=== PATIENT | male | born 1955 | race Caucasian/White ===

== ENCOUNTER 2017-03-10 20:28 | Inpatient (IN) ==
[2017-03-10] MEDS ORDERED: Ondansetron 4 MG/2 ML VIAL IVP ONE (21:14)
[2017-03-10] MEDS ORDERED: *HR* Morphine 2 MG/ML SYRINGE IVP ONE (21:14)
[2017-03-10] MEDS ORDERED: 0.9 % Sodium Chloride 500 ML IVC ONE ×2 (21:14→22:17)
--- NOTE | 2017-03-10 21:25 | Emergency Department Note ---
Disposition Clinical Impression: Hypercalcemia, Small cell carcinoma of right lung Disposition: Admitted As Inpatient Condition: Fair Time of Disposition: 22:25 Recheck wound or abnormal lab - General Chief Complaint: ED Recheck/Abnormal Lab/Rx Stated Complaint: High Calcium per cancer center Time Seen by Provider: 03/10/17 20:41 Source: patient Mode of arrival: wheelchair Limitations: no limitations Nursing Notes Reviewed: Yes Vital Signs Reviewed: Yes - History of Present Illness HPI Narrative: 62-year-old male presents to the ED for hypercalcemia. Patient is a cancer patient with diagnosed small cell lung cancer with metastases to the back. He has not gone to his last to chemotherapy appointments as he has had low platelets. He was called today stating that his calcium was too high and to come to the emergency department for possible treatment. Patient states that he hurts all over and this is increase in the past couple days. He also states that he has not had an appetite for the past 3 days. He has not eaten anything for the past few days. Patient is not having any headaches, blurry vision, fevers, chest pain or shortness of breath. Sign of any abdominal pain or change in bowel or bladder movements or any paresthesias going down the arms or legs. - Related Data Home Medications Medication Instructions Recorded Confirmed Aspirin [Aspirin] 81 mg PO DAILY 11/19/16 03/10/17 Isosorbide DInitrate [Isosorbide 30 mg PO DAILY 11/19/16 03/10/17 Dinitrate] Gabapentin [Neurontin] 300 mg PO HS 03/10/17 03/10/17 Previous Rx's Medication Instructions Recorded LORazepam [Ativan] 1 mg PO Q6H PRN #60 tablet 11/12/16 Lidocaine/Prilocaine [Emla] 1 appl TP AD #30 gm 11/12/16 Magic Mouthwash [Magic Mouthwash 10 ml PO QID PRN #240 ml 11/12/16 BLM] Omeprazole [PriLOSEC] 20 mg PO DAILY #90 cap 11/12/16 Ondansetron [Zofran] 8 mg PO Q8HR PRN #90 tablet 11/12/16 Prochlorperazine Maleate 10 mg PO Q6HR PRN #90 tablet 11/12/16 [Compazine] Docusate Sodium [Colace] 100 mg PO BID #60 capsule 12/01/16 Sennosides [Senna] 8.6 mg PO DAILY #60 tablet 12/01/16 Morphine Immed Rel [Morphine 15 mg PO Q2H PRN #90 tab 02/09/17 Sulfate] Morphine Sulfate [Arymo ER] 15 mg PO TID #90 tab.po.er 02/09/17 Allergies Allergy/AdvReac Type Severity Reaction Status Date / Time No Known Allergies Allergy Verified 01/15/17 11:08 Constitutional: Denies: fever, chills, weakness, weight change Eyes: Denies: eye pain, eye discharge, vision change ENT ED: Denies: ear pain, throat pain, dental pain, hearing loss, epistaxis, congestion, dysphagia Cardiovascular: Denies: chest pain, palpitations, dyspnea on exertion, edema, syncope Respiratory: Denies: cough, dyspnea, wheezes, hemoptysis, stridor Gastrointestinal: Reports: nausea. Denies: abdominal pain, vomiting, diarrhea, constipation, hematemesis, melena, hematochezia Genitourinary: Denies: urgency, dysuria, frequency, hematuria Musculoskeletal: Reports: back pain. Denies: neck pain, arthralgia, myalgia Integumentary: Denies: rash, abrasion, lesions Neurological: Denies: headache, weakness, numbness, paresthesias, confusion, abnormal gait, vertigo Psychiatric: Denies: anxiety, depression, suicidal thoughts, homicidal thoughts , auditory hallucinations, visual hallucinations Endocrine: Denies: fatigue Hematological/Lymphatic: Denies: easy bleeding, easy bruising Allergic/Immunologic: Denies: facial swelling, urticaria Past Medical History - Past Medical History Medical history: Reports: cancer, hyperlipidemia, hypertension Psychiatric history: Reports: anxiety - Social History Smoking Status: Unknown if ever smoked Smokeless Tobacco Status: No Alcohol use: Reports: none Drug use: Reports: none Physical Exam - General Limitations: no limitations General appearance: alert, in no apparent distress - Head Head exam: atraumatic, normocephalic, normal inspection - Eye Eye exam: Present: normal appearance, PERRL, EOMI - ENT ENT exam: normal exam, normal oropharynx, mucous membranes moist - Neck Neck exam: Present: normal inspection, full ROM, trachea midline - Chest Chest inspection: Present: normal inspection, symmetric chest wall rise - Respiratory Respiratory exam: Present: normal lung sounds bilaterally - Cardiovascular Cardiovascular exam: Present: regular rate, normal rhythm, normal heart sounds - Abdominal Exam Abdominal exam: Present: soft, Non-Tender, normal bowel sounds. Absent: tenderness, distention, guarding, rebound, rigidity - Back Exam Back exam: Present: normal inspection, full ROM. Absent: tenderness - Skin Skin exam: Present: warm, dry, intact, normal color Course Course Narrative: 62-year-old male presented to the ED for hypercalcemia per lab reports from the cancer center. He had an elevated calcium per lab results for possible chemotherapy but has not been treated. His labs were done at 1300 today. Based on the last being done recently we will just treat him with 500 ml of normal saline. He does have acute kidney injury with an elevated creatinine that is new. He also is hyponatremic. We will admit the patient to the hospitalist service after consulting with oncology. Patient family are okay with this plan. - Consultations Consultation #1: Consulted with hematology/oncology about this patient who recommended we start zoledronic acid 4 mg IV one time as well as calcitonin 4 mg 1. They also asked to be consulted and the patient admitted to medicine. Time: 22:00 Consultation #2: Admitted to the hospitalist service to who agreed to accept the patient to a telemetry bed. History and physical as well as assessment plan were presented to him. Also relayed to him that he needs to call the heme/onc Physician on-call Time: 22:22 Vital Signs Temperature 98.4 F 03/10/17 20:29 Pulse Rate 104 03/10/17 20:29 Respiratory Rate 21 03/10/17 20:29 Blood Pressure 99/67 03/10/17 20:29 O2 Sat by Pulse Oximetry 91 03/10/17 20:29 Temperature 98.1 F 03/11/17 07:17 Pulse Rate 85 03/11/17 08:22 Respiratory Rate 14 03/11/17 07:17 Blood Pressure 103/68 03/11/17 07:17 O2 Sat by Pulse Oximetry 96 03/11/17 07:17 Oxygen Delivery Oxygen Delivery Room Air Recheck wound or abnormal lab - MDM Narrative Medical decision making narrative: 62-year-old male presents to the ED for hypercalcemia secondary to small cell lung cancer with metastases to the back. He had a high calcium reading on labs done today at the cancer center as he has had a low platelet count for the past 2 weeks and unable to do chemotherapy due to that. His labs were done at 1:00 this afternoon so we did not repeat the labs and does use those lab values. He had a calcium of 13.6 and a late liquids of 36. He also was hyponatremic. Due to this we gave him 500 mL bolus of normal saline to help with the hypercalcemia as well as morphine and Zofran for pain and nausea. We talked to the oncologist who recommended zoledronic acid as well as calcitonin for treatment. I called the pharmacy and they did not have zoledronic acid as it was only an outpatient medication but they did have calcitonin Martin that for units per kilogram. I then spoke with the hospitalist who agreed to accept the patient to a telemetry bed. I related to him we are going start the calcitonin and he asked that I give more fluids so I ordered another 500 mL bolus of normal saline. I did express that they did not have zoledronic acid for him to call the oncologist for other recommendations. Patient is now admitted to the hospitalist service for hypercalcemia in a stable condition with normal vital signs. - Medical Records Medical records reviewed: Yes I reviewed the patient's medical records. - Lab Data Lab results reviewed: Yes I reviewed the patient's lab results. Result diagrams: 03/11/17 03:30 03/11/17 01:05 - Radiology Data Radiology results reviewed: Yes I reviewed the patient's radiology results. S.B.A.R. - S.B.A.R. Transition of Care: History physical as well as assessment and plan were relayed to who agreed to accept the patient to a telemetry bed. Situation: Demographics, MOA Background: Presenting Complaint, Relevant PMH, Meds, & Allergies Assessment: Vital Signs, Course and respsone to treatment, Exam Concerns, Patient/Family Expectation, Pertinant Lab Results, Outstanding Labs Recommendation: Barrier(s) to disposition, Recommendation based on pending studies, treatments, or consults S.B.A.R. Report Given to: Dr. Jonatan CallBFaridehAManny Repor Time: 22:26 Attestation Statement - Attestation Attestation: I examined this patient and my medical decision-making was reviewed with the Resident Physician, Dr. Mccurdy. I agree with the documented findings, disposition and treatment plan as described except to the extent set forth below. 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 Pt with chronic bone pain, and c/o dec appetite and ongoing nausea for past 2-3 days. No other complaints. Pt reports that he has not been able to receive his chemo for last 2 sessions due to his low platelets. No bruising or bleeding c/o's. I agree with pt's PE as documented. VSS. Reviewed pt's blood work which was drawn 7 hrs ago. Shows Ca=13.7. Also new renal insuff. Initiated IVF, and D/W hem/onc. They recommended calcitonin and additional medication which pharmacy states we do not carry. They agreed to consult on pt while hosp. Also d/w hospitalist who accepted pt for admission.
[2017-03-10] MEDS ORDERED: Calcitonin-Salmon, Synthetic 400 UNIT/2 ML VIAL IM ONE (22:18)
[2017-03-10] MEDS ORDERED: *HR* Morphine 2 MG/ML SYRINGE IVP PRN (23:36)
[2017-03-10] MEDS ORDERED: Naloxone 0.4 MG/ML INJ IVP PRN (23:36)
[2017-03-10] MEDS ORDERED: Acetaminophen 325 MG TABLET PO PRN (23:36)
[2017-03-10] MEDS ORDERED: Ondansetron 4 MG/2 ML VIAL IVP PRN (23:36)
[2017-03-10] MEDS ORDERED: *HR* LORazepam 1 MG TABLET PO PRN (23:41)
[2017-03-10] MEDS ORDERED: Magic Mouthwash 10 ML UD Cup PO PRN (23:41)
--- NOTE | 2017-03-10 23:42 | Internal Med History&Physical ---
Date of Encounter: 03/11/17 Time of Encounter: 23:30 Assessment and Plan (1) Hypercalcemia Current visit: Yes Status: Acute Severe hypercalcemia - likley secondary to malignancy/SCLC - causing generalized weakness, DEBORAH and constipation Calcitonin given, continue IV fluids, watch for fluid overload PTHrP, PTH intact, ionized calcium, phosphorus, uric acid, LDH - pending Oncology consult Cardiac telemetry, repeat labs in a.m., continue to monitor closely (2) Small cell carcinoma of right lung Current visit: Yes Status: Acute Metastatic Small cell carcinoma right lung with metastases to bone - currently on chemotherapy Overall prognosis is probably poor Oncology consult, palliative care consult (3) COPD (chronic obstructive pulmonary disease) Current visit: No Status: Chronic COPD, stable - not in exacerbation DuoNeb breathing treatment as needed, O2 via nasal cannula Qualifiers: COPD type: unspecified COPD Qualified Code(s): J44.9 - Chronic obstructive pulmonary disease, unspecified (4) Thrombocytopenia Current visit: Yes Status: Chronic Chronic thrombocytopenia 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 Transfuse if platelets < 20,000, transfuse PRBC if hemoglobin < 7 Internal Medicine - H&P: HPI Chief complaint: Hypercalcemia Admitted From: Emergency Dept Plans for Post Hospital Care: Home History of present illness: Mr. Ortiz is a 62 year old male with past medical history hyperlipidemia, hypertension, anxiety and small cell lung cancer undergoing chemotherapy. Patient presents to the ED for hypercalcemia. He had outpatient labs done by oncology and was advised to go to the ED. Examined in the room. Patient is awake and alert. Not in any distress. He is able to provide all history. No family members at bedside. Patient complains of generalized weakness, decreased appetite and constipation over the past few days. Patient also complains of bone pain over multiple areas. He says it is usually worse around his rib cage and thorax. Patient denies chest pain, denies shortness of breath, denies headache or dizziness or cough. Denies abdominal pain or vomiting. No other acute complaints. Workup revealed elevated calcium at 13. Current calcium is 14.6. Patient was advised to go to the ED. Patient has been given calcitonin and is on fluids. Patient was also given IV fluid bolus. Oncology will evaluate patient. No other acute events or findings at this time. Patient is being admitted for hypercalcemia secondary to malignancy. CODE STATUS full code. Past Med Surg Social Fam HX - Past Medical History Medical history: cancer, hyperlipidemia, hypertension Psychiatric history: anxiety - Social History Smoking Status: Unknown if ever smoked Smokeless Tobacco Status: No Alcohol use: none Drug use: none Internal Medicine - H&P: Meds LORazepam [Ativan] 1 mg PO Q6H PRN #60 tablet 11/12/16 [Rx] Lidocaine/Prilocaine [Emla] 1 appl TP AD #30 gm 11/12/16 [Rx] Magic Mouthwash [Magic Mouthwash BLM] 10 ml PO QID PRN #240 ml 11/12/16 [Rx] Omeprazole [PriLOSEC] 20 mg PO DAILY #90 cap 11/12/16 [Rx] Ondansetron [Zofran] 8 mg PO Q8HR PRN #90 tablet 11/12/16 [Rx] Prochlorperazine Maleate [Compazine] 10 mg PO Q6HR PRN #90 tablet 11/12/16 [Rx] Aspirin [Aspirin] 81 mg PO DAILY 11/19/16 [History] RX: Isosorbide DInitrate [Isosorbide Dinitrate] 30 mg PO DAILY 11/19/16 [History ] Docusate Sodium [Colace] 100 mg PO BID #60 capsule 12/01/16 [Rx] Sennosides [Senna] 8.6 mg PO DAILY #60 tablet 12/01/16 [Rx] RX: Morphine Immed Rel [Morphine Sulfate] 15 mg PO Q2H PRN #90 tab 02/09/17 [Rx] RX: Morphine Sulfate [Arymo ER] 15 mg PO TID #90 tab.po.er 02/09/17 [Rx] RX: Gabapentin [Neurontin] 300 mg PO HS 03/10/17 [History] 3 Allergy/AdvReac Type Severity Reaction Status Date / Time No Known Allergies Allergy Verified 01/15/17 11:08 All Systems PM: A 10-system review of systems was performed and is negative for pertinent findings except as documented above in the HPI. - Constitutional Constitutional: fatigue, weight loss, other (Poor appetite), no fever(s), no weakness - EENT Eyes: no blurry vision - Cardiovascular Cardiovascular ROS IM: no chest pain, no diaphoresis, no dyspnea, no dyspnea on exertion, no edema, no lightheadedness, no orthopnea, no syncope - Respiratory Respiratory: cough, no dyspnea, no hemoptysis, no dyspnea on exertion, no wheezing - Gastrointestinal Gastrointestinal: constipation, no abdominal pain, no bloating, no cramping, no diarrhea, no hematemesis, no hematochezia, no loose stools, no nausea, no vomiting - Genitourinary Genitourinary ROS male: no dysuria - Musculoskeletal Musculoskeletal ROS IM: back pain, myalgias, other (Pain lower rib cage and thorax) - Neurological Neurological ROS: no abnormal gait, no confusion, no dizziness, no focal weakness, no loss of vision, no numbness, no tingling - Constitutional Vitals: Temp Pulse Resp BP Pulse Ox 98.4 F 99 14 120/70 92 03/10/17 20:29 03/10/17 23:20 03/10/17 23:20 03/10/17 23:20 03/10/17 23:20 General appearance: Present: cachectic, A&O X 3, pleasant, no acute distress, underweight, answers questions appropriately - Head Head exam: Present: atraumatic - Eye Eye exam: Present: EOMI - ENT ENT exam: Present: mucous membranes dry - Respiratory Respiratory exam: Present: decreased breath sounds (Slightly decreased in both bases). Absent: accessory muscle use, rales, rhonchi, wheezes, tachypnea - Cardiovascular Cardiovascular exam: Present: RRR, +S1, +S2 - GI/Abdominal GI/Abdominal exam: Present: soft. Absent: distended, firm, guarding, tenderness - Extremities Exam Extremities exam: Present: radial pulses palpable and symmetrical. Absent: calf tenderness, cyanotic, pedal edema - Neurological Exam Neurological exam: Present: alert, oriented X3, no focal deficits. Absent: facial droop, speech deficit
[2017-03-11] MEDS ORDERED: 0.9 % Sodium Chloride 1,000 ML ONE (00:07)
--- NOTE | 2017-03-11 00:11 | Oncology Inp Consult Note ---
Date of Encounter: 03/10/17 Time of Encounter: 23:54 Assessment and Plan (1) Hypercalcemia Status: Acute Assessment and plan: - Severe hypercalcemia, in view that when the calcium values are corrected per albumine, it's above 14 mg/dl. He is symptomatic from his hypercalcemia ( generalized weakness, constipation, DEBORAH) and require emergent treatment with IVF for volume expansion, calcitonin and biphosphonates. Recommendations discussed with ED provider. In view of his underlying SCLC, the more likely etiology is hypercalcemia of malignancy. Recommendations: -Calcitonin 4 units/Kg x 1. Repeat serum calcium and ionized calcium in AM, and consider a repeated dose ( 4 units/kg ) if there has not been significant improvement. - Zoledronic acid 4 mg IV ( infusion) x 1. There is associated DEBORAH, but there are case reports documenting good tolerance of zoledronic acid even in the presence of significant DEBORAH. - Continue IVF. I'd consider to add lasix IV only if he develops clinical findings consistent with CHF exacerbation. - Monitor BMP BID. - Check LDH, uric acid, phosphate to r/o TLS. - Check PTH, ionized calcium PTHrP in AM. (2) Small cell carcinoma of right lung Status: Acute Assessment and plan: -Currently on C5D30 of palliative chemotherapy with carbo/Etoposide. Cycle 6 was due on 03/03 but postponed due to acute anemia and thrombocytopenia. - The presence of hypercalcemia and new uptake noticed in bone scan from early january are suggestive of refractory disease. I would suggest to check CT scan of chest, pelvis and abdomen WITHOUT CONTRAST ( in view of DEBORAH), along with bone scan for re staging purposes. - Overall prognosis is poor. - Please request a palliative care consult to help with uncontrolled bone pain. (3) Thrombocytopenia Status: Acute Assessment and plan: - More likely chemo-induced thrombocytopenia and anemia. There is not associated bleeding, will monitor for now. - Monitor CBC daily and transfuse 1 pool of platelets for counts less than 20K - Transfuse 1 PRBC for Hemoglobin levels < 7 g/dl. - Data of Consult Requesting Physician: Maria De Jesus Salmeron MD Primary Care Provider: Evan Rizo MD - Consult Narrative Reason for consult: Management of severe hypercalcemia History of present illness: Mr. Ortiz is a 62 year old male with history of extensive stage small cell lung carcinoma s/p 5 cycles of palliative chemotherapy with carboplatin/ etoposide presenting to the ED due severe hypercalcemia, and associated diffuse severe bone pain, and generalized weakness. Mr. Ortiz is was scheduled to receive cycle 6 of carbo/etoposide on 03/03/17, but chemo was postponed fist due to acute anemia ( requiring 2 units of blood ) and this week due to persistent thrombocytopenia in the 30K range. He is accompanied by a family member at the bedside. He reports that during the last 1-2 weeks he has noticed worsening bone pain, located in multiple areas: both hips, shoulders, rib cage/thorax, back. He rated the pain as 9/10 prior to admission, but decreased to 6/10 after administration of opiates while in the ED. He reports that during the last week has noticed worsening fatigue, generalized weakness, having to ambulate using a cane, but denies any recent falls or focal weakness, or dizziness. He reports that his appetite has decreased, a few days ago had one episode of emesis, but has not recurred since then. he reports good tolerance to PO fluids at home, but with poor PO intake due to poor appetite. He reports spending more time sitting down on the agile coach for the last couple of weeks. He was seen on 02/26/17 at the oncology office here at [place], with plans to complete one more cycle of chemotherapy ( total of 6 ) prior to repeat re staging CT scans. His most recent scans from last January revealed findings consistent with stable or slightly improvement of his disease at the thoracic level, not new solid organ metastatic lesions in the abdomen or pelvis, but evidence of pathologic fracture at the level of L2, along with evidence of bone involvement at the level of left iliac wing, and right ischial tuberosity. His bone scan from the same day revealed evidence of new focal uptake in the right superior acetabulum and the anterior right iliac bone concerning for new skeletal metastatic disease. Palliative radiation had not considered previously since his symptoms were well controlled at that time. The decision to recommend PCI and/or radiation therapy for thoracic consolidation would depend of the results of his next staging CT scans planned after completion of cycle 6 of chemotherapy. Today his calcium was noted to be 13 mg/dl, his values of corrected calcium ( to albumin) were 14.6 mg. He reports symptoms such as constipation, generalized weakness and his labs revealed associated new DEBORAH. He denies shortness of breath, diarrhea, ongoing nausea, headache or focal neurologic deficits. Past Med Surg Social Fam HX - Past Medical History Medical history: cancer, hyperlipidemia, hypertension Psychiatric history: anxiety - Social History Smoking Status: Unknown if ever smoked Smokeless Tobacco Status: No Alcohol use: none Drug use: none Medications and Allergies LORazepam [Ativan] 1 mg PO Q6H PRN #60 tablet 11/12/16 [Rx] Lidocaine/Prilocaine [Emla] 1 appl TP AD #30 gm 11/12/16 [Rx] Magic Mouthwash [Magic Mouthwash BLM] 10 ml PO QID PRN #240 ml 11/12/16 [Rx] Omeprazole [PriLOSEC] 20 mg PO DAILY #90 cap 11/12/16 [Rx] Ondansetron [Zofran] 8 mg PO Q8HR PRN #90 tablet 11/12/16 [Rx] Prochlorperazine Maleate [Compazine] 10 mg PO Q6HR PRN #90 tablet 11/12/16 [Rx] Aspirin [Aspirin] 81 mg PO DAILY 11/19/16 [History] Isosorbide DInitrate [Isosorbide Dinitrate] 30 mg PO DAILY 11/19/16 [History] Docusate Sodium [Colace] 100 mg PO BID #60 capsule 12/01/16 [Rx] Sennosides [Senna] 8.6 mg PO DAILY #60 tablet 12/01/16 [Rx] Morphine Immed Rel [Morphine Sulfate] 15 mg PO Q2H PRN #90 tab 02/09/17 [Rx] Morphine Sulfate [Arymo ER] 15 mg PO TID #90 tab.po.er 02/09/17 [Rx] Gabapentin [Neurontin] 300 mg PO HS 03/10/17 [History] 3 Allergy/AdvReac Type Severity Reaction Status Date / Time No Known Allergies Allergy Verified 01/15/17 11:08 Constitutional: Present: anorexia, fatigue, malaise. Absent: fever(s), frequent falls, headache(s) Eyes: Absent: blurry vision, diplopia, discharge Nose, mouth and throat: Absent: bleeding gums, dizziness Cardiovascular: Absent: chest pain with activity, diaphoresis, edema, palpitations Respiratory: Absent: cough, hemoptysis, pain on inspiration, chest congestion, excessive phlegm production Gastrointestinal: Present: constipation, nausea. Absent: abdominal pain, dyspepsia, dysphagia, hematochezia Genitourinary: urinary frequency Musculoskeletal: Present: abnormal gait, back pain, muscle weakness. Absent: atrophy Integumentary: Absent: bleeding lesions, pruritus Neurological: Absent: behavioral changes, confusion, disequilibrium, dizziness, focal weakness, frequent falls Psychiatric: Absent: auditory hallucinations, behavioral changes, confusion, visual hallucinations Endocrine: Present: change in body appearance Hematologic/Lymphatic: Absent: easy bruising, lymphadenopathy Oncology - Exam - Constitutional Vitals: Temp Pulse Resp BP Pulse Ox 98.4 F 99 16 120/70 92 03/10/17 20:29 03/10/17 23:20 03/10/17 23:43 03/10/17 23:43 03/10/17 23:20 - Head Head exam: Present: normal inspection, normocephalic - Eye Eye exam: Present: EOMI, normal appearance, PERRL - ENT ENT exam: Present: mucous membranes dry, normal oropharynx. Absent: mucous membranes moist - Neck Neck exam: Present: normal inspection. Absent: lymphadenopathy, tenderness - Respiratory Respiratory exam: Present: CTAB. Absent: prolonged expiratory phase, rales, respiratory distress - Cardiovascular Cardiovascular exam: Present: RRR, +S1. Absent: gallop, irregular rhythm, JVD - GI/Abdominal GI/Abdominal exam: Present: normal bowel sounds. Absent: distended, guarding, organomegaly, pulsatile mass - Extremities Exam Extremities exam: Present: full ROM, normal inspection. Absent: pedal edema - Back Exam Back exam: Present: normal inspection, paraspinal tenderness, tenderness, vertebral tenderness - Neurological Exam Neurological exam: Present: alert, CN II-XII intact, oriented X3, reflexes normal Additional comments: There are not focal neurologic deficits in the exam, including normal bilateral finger-nose cerebellar examination. - Psychiatric Psychiatric exam: Present: normal mood. Absent: anxious - Skin Skin exam: Present: normal color. Absent: pallor, petechiae - Additional findings Additional findings: Pain with palpation at different sites, including both shoulders, both hips, and thoracic cage. Consult Discharge Plan - Plan Referrals: Evan Rizo MD [Primary Care Provider] -
[2017-03-11 03:33] LABS: Alanine Aminotransferase 12 Units/L (0-55); Albumin 2.4 g/dL (3.5-5.0); Albumin/Globulin Ratio 0.7 (1.1-2.2); Alkaline Phosphatase 98 Units/L (38-126); Aspartate Amino Transferase 57 Units/L (5-34); BUN/Creatinine Ratio 33 (6-26); Bilirubin,Total 0.3 mg/dL (0.2-1.2); Calcium 12.3 mg/dL (8.6-10.8); Carbon Dioxide 27 mEq/L (19-29); Chloride 92 mEq/L (98-109); Globulin 3.5 g/dL (2.4-3.5); Glucose 113 mg/dL (70-99); Osmolality,Calculated 279 (280-300); Potassium 3.8 mEq/L (3.5-4.5); Sodium 129 mEq/L (136-145); Total Protein 5.9 g/dL (6.0-8.3); eGFR For African Americans > 60 (> 60); eGFR For Non-African Americans 57 (> 60)
[2017-03-11 04:05] LABS: Basophils % 0.2 %; Eosinophils # 0.1 K/mcL (0.0-0.6); Eosinophils % 1.1 %; Hematocrit 25.2 % (37.5-50.1); Hemoglobin 8.4 g/dL (12.9-16.9); Immature Granulocytes % 8.3 % (0-4); Immature Platelets 11.1 % (1.1-6.1); Lymphocytes # 2.2 K/mcL (0.6-4.6); Lymphocytes % 24.6 %; Mean Corpuscular HGB Conc 33.3 g/dL (31.6-35.5); Mean Corpuscular Hemoglobin 30.1 pg (28.0-33.3); Mean Corpuscular Volume 90.3 fL (83.0-100.0); Monocytes # 1.1 K/mcL (0.0-1.3); Monocytes % 12.4 %; Neutrophils # 4.7 K/mcL (1.6-8.9); Nucleated Red Blood Cells 0.8 /100 WBC (0); Red Blood Count 2.79 M/mcL (4.19-5.50); Red Cell Distribution Width 14.8 % (11.5-14.5); Segmented Neutrophils % 53.4 %
[2017-03-11 04:26] LABS: Blood Urea Nitrogen 42 mg/dL (8-26)
[2017-03-11] MEDS: 0.9 % Sodium Chloride 1,000 ML IVC SCH ×4 (04:34→18:51)
[2017-03-11 04:47] LABS: Platelet Count 30 K/mcL (140-400)
[2017-03-11 04:58] LABS: Clarity,Urine Clear (Clear); Color,Urine Yellow (Yellow)
[2017-03-11 04:59] LABS: Bilirubin,Urine Negative (Negative); Blood,Urine Negative (Negative); Glucose,Urine (UA) Normal (Normal); Ketones,Urine Negative (Negative); Leukocyte Esterase,Urine Negative (Negative); Nitrite,Urine Negative (Negative); PH,Urine 5.5 pH Units (5.0-8.0); Protein,Urine Negative (Neg-Trace); Specific Gravity,Urine 1.018 (1.010-1.025); Urobilinogen,Urine Normal (Normal)
[2017-03-11] MEDS ORDERED: Famotidine 20 MG/2 ML VIAL IVP SCH (06:00)
[2017-03-11] MEDS ORDERED: *HR* Heparin 5,000 UNIT/ML VIAL SQ SCH (06:00)
[2017-03-11 06:01] LABS: Phosphorous 2.9 mg/dL (2.3-4.7); Uric Acid 12.1 mg/dL (3.5-7.2)
[2017-03-11] MEDS: Aspirin 81 MG TAB.CHEW PO SCH (08:06)
[2017-03-11] MEDS ORDERED: Sennosides 8.6 MG TABLET PO SCH (09:00)
--- NOTE | 2017-03-11 10:12 | Oncology Inp Progress Note ---
Date of Encounter: 03/11/17 Time of Encounter: 10:10 (1) Hypercalcemia Current Visit: Yes Status: Acute Assessment and plan: - Calcium values are improving, now down to 12.3 mg /dl. - PTH is supressed as expected, consistent with hypercalcemia of malignancy. - Continue ongoing management with IVF. If he develops symptoms of volume overload/CHF, add lasix. - Please repeat another dose of calcitonina today AM: 150 units IM x 1. -If not given yet, please order Zoledronic acid 4 mg x 1 (IV infusion). - Repeat CMP in AM. (2) Small cell carcinoma of right lung Current Visit: Yes Status: Acute Assessment and plan: -Currently on C5D31 of palliative chemotherapy with carbo/Etoposide. Cycle 6 was due on 03/03 but postponed due to acute anemia and thrombocytopenia. - His labs ( hypercalcemia) and clinical findings ( including prior bone scan and CT scan from last january) are suggestive of disease progression. Unfortunately, his options are limited. At this time he is not a candidate for inpatient chemotherapy in view of ongoing thrombocytopenia ( Platelet in the 30K range). I explained him that hypercalcemia and early relapse/refractory disease are poor prognosis indicators. Overall his prognosis is poor, less than 6 months and certainly he would be a candidate for hospice if he decided not pursue further chemotherapy. - I discussed with him the option to attempt to stabilize his electrolyte abnormalities ( hypercalcemia, hyperuricemia) and discharge him home with plans to follow up with medical oncologist Dr. Sandhu to discuss the options of second line therapy for SCLC, however he expressed several times his wishes to go home soon ( if possible today). I explained that alternatively we could focus on quality of life exclusively if he decided against pursuing further chemotherapy. He was leading toward that option but was not completely decided. He expressed interest in meeting with the palliative care team to learn more about the option of hospice, and about the option of going home under hospice care. He will inform his brother about our conversation. - Please request a palliative care consult to address goals of care. - If patient is not interested in hospice, please check CT abdomen /pelvis/chest ( without contrast) and bone scan to assess disease progression. (3) Thrombocytopenia Current Visit: Yes Status: Chronic Assessment and plan: - More likely chemo-induced thrombocytopenia and anemia. - Slight drop to 30 K, but not associated bleeding. - Monitor CBC daily and transfuse 1 pool of platelets for counts less than 20K - Transfuse 1 PRBC for Hemoglobin levels < 7 g/dl. (4) Hyperuricemia Current Visit: Yes Status: Acute Assessment and plan: - Associated with elevated LDH, hypercalcemia, suggestive of aggressive tumor growth, spontaneous TLS ( especially in view of not elevated phosphate levels). - Continue management with IVF, and management of hypercalcemia. - Please order rasburicase 9 mg IV daily x 5 day. Monitor serum uric acid daily. - Add allopurinol 300 mg PO BID Oncology: Subj Interval history: CC: bone pain. Mr. Ortiz reports improvement of his bone pain. Still reporting bone pain at different sites: bilateral shoulders, hips, thoracic cage, but now rating his pain 4 out of 10 ( it was 9/10 prior to admission). He reports poor appetite, and po intake, but denies nausea, vomiting. Reports not BM since 4 days ago. - Constitutional Vitals: Vital Signs Temp Pulse Resp BP Pulse Ox 03/11/17 08:22 85 03/11/17 07:17 98.1 F 84 14 103/68 96 03/11/17 04:29 98.4 F 87 18 96/58 97 03/11/17 00:10 99.8 F H 93 16 96/63 96 03/10/17 23:43 16 120/70 Intake and Output 03/10/17 03/11/17 03/11/17 23:59 07:59 15:59 Intake Total 500 / 1000 0 / 0 120 / 120 Output Total 830 / 830 Balance 500 / 1000 -830 / -830 120 / 120 Intake: IV Fluids 500 / 500 0.9 % Sodium Chloride 500 500 / 500 ML @ 1875 mls/hr IVC . Q16M ONE Rx#:[id number] Oral 0 / 0 120 / 120 Output: Urine 830 / 830 Other: Meal Breakfast Percent of Meal Consumed 10% Weight 47 kg Patient Weight 03/11/17 23:59 Weight 47 kg - Head Head exam: Present: normal inspection, normocephalic - Eye Eye exam: Present: EOMI, normal appearance. Absent: nystagmus, periorbital swelling - ENT ENT exam: Present: normal exam, normal external ear exam, normal oropharynx - Neck Neck exam: Present: normal inspection. Absent: lymphadenopathy, tenderness - Respiratory Respiratory exam: Present: chest wall tenderness, CTAB. Absent: decreased breath sounds, prolonged expiratory phase, rales - Cardiovascular Cardiovascular exam: Present: RRR. Absent: gallop, irregular rhythm - GI/Abdominal GI/Abdominal exam: Present: normal bowel sounds. Absent: diminished bowel sounds, organomegaly, tenderness - Extremities Exam Extremities exam: Present: normal inspection. Absent: pedal edema, tenderness - Back Exam Back exam: Present: normal inspection. Absent: paraspinal tenderness - Neurological Exam Neurological exam: Present: alert, oriented X3. Absent: altered, CN II-XII intact, no focal deficits - Psychiatric Psychiatric exam: Present: normal affect, normal mood - Skin Skin exam: Present: normal color. Absent: pallor, petechiae Oncology: Obj Data - Labs CBC & Chem 7: 03/11/17 03:30 03/11/17 01:05 Labs: Laboratory Results - last 24 hr 03/11/17 03/11/17 03/11/17 01:05 02:05 03:30 WBC 8.8 RBC 2.79 L Hgb 8.4 L D Hct 25.2 L MCV 90.3 MCH 30.1 MCHC 33.3 RDW 14.8 H Plt Count 30 L* Immature Gran % 8.3 H Seg Neutrophils % 53.4 Lymphocytes % 24.6 Monocytes % 12.4 Eosinophils % 1.1 Basophils % 0.2 Neutrophils # 4.7 Lymphocytes # 2.2 Monocytes # 1.1 Eosinophils # 0.1 Basophils # 0.0 Nucleated RBCs/100 WBC 0.8 H Immature Plt Fraction 11.1 H Sodium 129 L Potassium 3.8 Chloride 92 L Carbon Dioxide 27 BUN 42 H Creatinine 1.28 H Est GFR ( Amer) > 60 Est GFR (Non-Af Amer) 57 L BUN/Creatinine Ratio 33 H Glucose 113 H Calculated Osmolality 279 L Uric Acid Calcium 12.3 H Phosphorus Magnesium Total Bilirubin 0.3 AST 57 H ALT 12 Alkaline Phosphatase 98 Lactate Dehydrogenase Serum Total Protein 5.9 L Albumin 2.4 L Globulin 3.5 Albumin/Globulin Ratio 0.7 L Urine Color Yellow Urine Clarity Clear Urine pH 5.5 Ur Specific [place] 1.018 Urine Protein Negative Urine Glucose (UA) Normal Urine Ketones Negative Urine Blood Negative Urine Nitrite Negative Urine Bilirubin Negative Urine Urobilinogen Normal Ur Leukocyte Esterase Negative 03/11/17 03/11/17 04:35 04:35 WBC RBC Hgb Hct MCV MCH MCHC RDW Plt Count Immature Gran % Seg Neutrophils % Lymphocytes % Monocytes % Eosinophils % Basophils % Neutrophils # Lymphocytes # Monocytes # Eosinophils # Basophils # Nucleated RBCs/100 WBC Immature Plt Fraction Sodium Potassium Chloride Carbon Dioxide BUN Creatinine Est GFR ( Amer) Est GFR (Non-Af Amer) BUN/Creatinine Ratio Glucose Calculated Osmolality Uric Acid 12.1 H Calcium Phosphorus 2.9 Magnesium 1.1 L Total Bilirubin AST ALT Alkaline Phosphatase Lactate Dehydrogenase 1641 H Serum Total Protein Albumin Globulin Albumin/Globulin Ratio Urine Color Urine Clarity Urine pH Ur Specific [place] Urine Protein Urine Glucose (UA) Urine Ketones Urine Blood Urine Nitrite Urine Bilirubin Urine Urobilinogen Ur Leukocyte Esterase Consult Discharge Plan - Plan Referrals: Evan Rizo MD [Primary Care Provider] -
[2017-03-11] MEDS ORDERED: Zoledronic Acid (Reclast) 5 MG/100 ML INFUS..BTL IVPB ONE (12:38)
[2017-03-11] MEDS ORDERED: Calcitonin-Salmon, Synthetic 400 UNIT/2 ML VIAL IM ONE (12:40)
[2017-03-11] MEDS ORDERED: Furosemide 20 MG TABLET PO PRN (12:41)
--- NOTE | 2017-03-11 12:46 | Internal Med Progress Note ---
Date of Encounter: 03/11/17 Time of Encounter: 12:44 - Assessment and plan (1) Hypercalcemia of malignancy Current Visit: Yes Status: Acute (2) DEBORAH (acute kidney injury) Current Visit: Yes Status: Acute (3) Small cell carcinoma of right lung Current Visit: Yes Status: Acute (4) Thrombocytopenia Current Visit: Yes Status: Chronic (5) Coordination of complex care Current Visit: Yes Status: Acute (6) COPD (chronic obstructive pulmonary disease) Current Visit: No Status: Chronic Qualifiers: COPD type: unspecified COPD Qualified Code(s): J44.9 - Chronic obstructive pulmonary disease, unspecified - Subjective Interval history: Mr. Ortiz is a 62 year old male with past medical history hyperlipidemia, hypertension, anxiety and small cell lung cancer undergoing chemotherapy. Patient presents to the ED for hypercalcemia. He had outpatient labs done by oncology and was advised to go to the ED. he has just been started on IV hydration and calcitonin was given. Oncology has seen him this morning. We plan to aggressively hydrate the patient and increase IV fluid 250 mL an hour, add Lasix 20 mg daily, additional dose of calcitonin one 150 mg IM 1 and Zoledronic acid 5mg x 1. Repeat CBC CMP daily. Patient has also history of hypertension dyslipidemia and COPD and home medications will be restarted and patient will reassess on daily basis. Oncology feels that patient has poor prognosis due to rapid progression of disease and also due to her from just anemia of malignancy. Palliative care consulted. Overall he seems stable he does not need any oxygen and hemodynamically he is stable. - Constitutional Vitals: Temp Pulse Resp BP Pulse Ox 98.1 F 85 14 103/68 96 03/11/17 07:17 03/11/17 11:17 03/11/17 07:17 03/11/17 07:17 03/11/17 07:17 General appearance: Present: cachectic, A&O X 3, pleasant, no acute distress, underweight, answers questions appropriately - Head Head exam: Present: atraumatic, normocephalic - Eye Eye exam: Present: PERRL, conjuntiva pink, sclera anicteric Pupils: Present: PERRL - Neck Neck exam general surgery: Present: supple, trachea midline. Absent: lymphadenopathy - Respiratory Respiratory exam: Present: CTAB. Absent: accessory muscle use, rales, rhonchi, wheezes - Cardiovascular Cardiovascular exam: Present: RRR, +S1, +S2. Absent: diastolic murmur, gallop, rubs, systolic murmur - GI/Abdominal GI/Abdominal exam: Present: normal bowel sounds, soft, no peritoneal signs. Absent: distended, tenderness - Extremities Exam Extremities exam: Present: warm, radial pulses palpable and symmetrical. Absent : calf tenderness, cyanotic, pedal edema - Neurological Exam Neurological exam: Present: CN II-XII intact, oriented X3, no focal deficits. Absent: pronater drift, facial droop, speech deficit - Skin Skin exam: Present: dry, intact Internal Medicine: Result - Labs CBC & Chem 7: 03/11/17 03:30 03/11/17 01:05 Labs: Short CBC 03/11/17 Range/Units 03:30 WBC 8.8 (4.3-11.1) K/mcL Hgb 8.4 L D (12.9-16.9) g/dL Hct 25.2 L (37.5-50.1) % Plt Count 30 L* (140-400) K/mcL Neutrophils # 4.7 (1.6-8.9) K/mcL BMP 03/11/17 01:05 Sodium 129 L Potassium 3.8 Chloride 92 L Carbon Dioxide 27 BUN 42 H Creatinine 1.28 H Glucose 113 H Calcium 12.3 H Liver Function 03/11/17 Range/Units 01:05 Total Bilirubin 0.3 (0.2-1.2) mg/dL AST 57 H (5-34) Units/L ALT 12 (0-55) Units/L Alkaline Phosphatase 98 (38-126) Units/L Albumin 2.4 L (3.5-5.0) g/dL Urine 03/11/17 Range/Units 02:05 Urine Color Yellow (Yellow) Urine Clarity Clear (Clear) Urine pH 5.5 (5.0-8.0) pH Units Ur Specific [place] 1.018 (1.010-1.025) Urine Protein Negative (Neg-Trace) mg/dL Urine Glucose (UA) Normal (Normal) mg/dL Consult Discharge Plan - Plan Referrals: Evan Rizo MD [Primary Care Provider] -
--- NOTE | 2017-03-11 14:37 | Palliative - Consult Note ---
Date of Encounter: 03/11/17 Time of Encounter: 13:20 - Assessment and Plan (1) Constipation by delayed colonic transit Current Visit: Yes Status: Acute Assessment and plan: Increased Sinemet to 2 tabs twice a day. Continue docusate as already prescribed watch. (2) Counseling regarding goals of care Current Visit: Yes Status: Acute Assessment and plan: After discussion with patient CODE STATUS is changed from full code to DNR CCA, DNI area patient at this time wishes to continue doing chemotherapy but is considering his options. Went over hospice in depth for possibility of the chemotherapy no longer working or causing too many side effects. At this time if further chemotherapy is offered and/or radiation therapy is offered a patient is interested. It does sound like the patient's having fairly significant pain from bony metastases and it might be worthwhile for the patient to get some radiation therapy especially for that. (3) Nausea alone Current Visit: Yes Status: Acute Assessment and plan: Will schedule antiemetic, and see if this helps. (4) Small cell carcinoma of right lung Current Visit: Yes Status: Acute Assessment and plan: Currently getting chemotherapy. (5) Hypercalcemia Current Visit: Yes Status: Acute Assessment and plan: Plan per oncology and hospitalist team including IV hydration him a calcitonin and zoledronic acid. (6) DEBORAH (acute kidney injury) Current Visit: Yes Status: Acute Assessment and plan: Patient beings actively hydrated at this time plan per hospitalist team (7) Bone pain Current Visit: Yes Status: Acute Assessment and plan: Currently the patient's pain is much better, start the patient on Decadron this is in addition to the bisphosphonates which is being given for his hypercalcemia Palliative-CN HPI - Data of Consult Requesting Physician: Maria De Jesus Salmeron MD Primary Care Provider: Evan Rizo MD - Consult Narrative Palliative Care/Comfort Measures: Palliative care History of present illness: Mr. Ortiz is a 62 year old male witha hx of small cell lung cancer first diagnosed in October of this year. Patient has gone through cycles of chemotherapy however the sixth cycle has been held up due to problems with anemia thrombocytopenia now hypercalcemia of D &C. Svelte at this time by the oncology dishes at the cancer center that the patient's calcium [place] is secondary to malignancy, and this plus the low platelets indicates that the therapy may not be working as well for him as was hoped. She reports that at times he has a very sharp pain that is throughout his body which is primarily in his thorax on Dando's abdomen. It seems to be very deep throbbing pain that does get at least a little bit better with pain medications however it was quite bad. They really seem to provoke it went away on its own the medication did seem to help movement deftly made it worse. It was radiating throughout his entire thorax and abdomen. She also has a great deal of trouble with nausea but no vomiting is also very constipated. Causing him do not really want to eat at all. Over the smell of food and the sight of food does not seem to cause him problems it is actually when he starts to eat. Palliative care was consulted regarding the possibility of hospice and information on hospice. See the CC: Maria De Jesus Salmeron MD hypercalceny Past Med Surg Social Fam HX - Past Medical History Medical history: cancer, hyperlipidemia, hypertension Psychiatric history: anxiety - Past Surgical History Surgical History: other - Social History Smoking Status: Unknown if ever smoked Smokeless Tobacco Status: No Alcohol use: none Drug use: none Medications and Allergies LORazepam [Ativan] 1 mg PO Q6H PRN #60 tablet 11/12/16 [Rx] Lidocaine/Prilocaine [Emla] 1 appl TP AD #30 gm 11/12/16 [Rx] Magic Mouthwash [Magic Mouthwash BLM] 10 ml PO QID PRN #240 ml 11/12/16 [Rx] Omeprazole [PriLOSEC] 20 mg PO DAILY #90 cap 11/12/16 [Rx] Ondansetron [Zofran] 8 mg PO Q8HR PRN #90 tablet 11/12/16 [Rx] Prochlorperazine Maleate [Compazine] 10 mg PO Q6HR PRN #90 tablet 11/12/16 [Rx] Aspirin [Aspirin] 81 mg PO DAILY 11/19/16 [History] Isosorbide DInitrate [Isosorbide Dinitrate] 30 mg PO DAILY 11/19/16 [History] Docusate Sodium [Colace] 100 mg PO BID #60 capsule 12/01/16 [Rx] Sennosides [Senna] 8.6 mg PO DAILY #60 tablet 12/01/16 [Rx] Morphine Immed Rel [Morphine Sulfate] 15 mg PO Q2H PRN #90 tab 02/09/17 [Rx] Morphine Sulfate [Arymo ER] 15 mg PO TID #90 tab.po.er 02/09/17 [Rx] Gabapentin [Neurontin] 300 mg PO HS 03/10/17 [History] 3 Allergy/AdvReac Type Severity Reaction Status Date / Time No Known Allergies Allergy Verified 01/15/17 11:08 Palliative Care-Exam - Constitutional Vitals: Temp Pulse Resp BP Pulse Ox 98.1 F 85 14 103/68 96 03/11/17 07:17 03/11/17 11:17 03/11/17 07:17 03/11/17 07:17 03/11/17 07:17 General appearance: Present: no acute distress - Head Head Exam: Present: atraumatic, normal inspection - Eye Eye exam: Present: normal appearance - ENT ENT exam: Present: mucous membranes moist - Neck Neck exam: Present: normal inspection - Respiratory Respiratory exam: Present: CTAB - Cardiovascular Cardiovascular exam: Present: RRR - GI/Abdominal Exam GI/Abdominal exam: Present: normal bowel sounds, soft. Absent: tenderness - Extremities Exam Extremities exam: Present: normal inspection. Absent: pedal edema, tenderness - Neurological Exam Neurological exam: Present: alert, oriented X3 - Psychiatric Psychiatric exam: Present: normal affect, normal mood. Absent: agitated, anxious, homicidal ideation, suicidal ideation - Skin Skin exam: Present: dry, warm Internal Medicine - CN: Reslt - Labs CBC & Chem 7: 03/11/17 03:30 03/11/17 01:05 Labs: Short CBC 03/11/17 Range/Units 03:30 WBC 8.8 (4.3-11.1) K/mcL Hgb 8.4 L D (12.9-16.9) g/dL Hct 25.2 L (37.5-50.1) % Plt Count 30 L* (140-400) K/mcL Neutrophils # 4.7 (1.6-8.9) K/mcL BMP 03/11/17 01:05 Sodium 129 L Potassium 3.8 Chloride 92 L Carbon Dioxide 27 BUN 42 H Creatinine 1.28 H Glucose 113 H Calcium 12.3 H Liver Function 03/11/17 Range/Units 01:05 Total Bilirubin 0.3 (0.2-1.2) mg/dL AST 57 H (5-34) Units/L ALT 12 (0-55) Units/L Alkaline Phosphatase 98 (38-126) Units/L Albumin 2.4 L (3.5-5.0) g/dL Urine 03/11/17 Range/Units 02:05 Urine Color Yellow (Yellow) Urine Clarity Clear (Clear) Urine pH 5.5 (5.0-8.0) pH Units Ur Specific [place] 1.018 (1.010-1.025) Urine Protein Negative (Neg-Trace) mg/dL Urine Glucose (UA) Normal (Normal) mg/dL Consult Discharge Plan - Plan Referrals: Evan Rizo MD [Primary Care Provider] - Palliative Quality Palliative Quality: Screen for Code Status: Yes, Screen for Goals of Care: Yes, Screen for Pain: Yes, If Pain Regimen Started, Initiate Bowel Regimen: Yes, Screen for Nausea/Vomitting: Yes Code Status: 03/10/17 23:36 Resuscitation Status: Active [RES] Routine Comment: Resuscitation Status: [id number]
[2017-03-11] MEDS ORDERED: *HR* Morphine 2 MG/ML SYRINGE IVP PRN (14:50)
[2017-03-11] MEDS: Magnesium Sulfate 2 GM in D5% in Water 100 ML IVPB SCH ×2 (15:40→16:41)
[2017-03-11] MEDS: Ondansetron 4 MG/2 ML VIAL IVP SCH ×2 (17:37→23:48)
[2017-03-11] MEDS: Gabapentin 300 MG CAPSULE PO SCH (20:06)
[2017-03-11] MEDS: Sennosides 8.6 MG TABLET PO SCH (20:06)
[2017-03-12] MEDS: 0.9 % Sodium Chloride 1,000 ML IVC SCH ×3 (00:23→17:49)
[2017-03-12 03:18] LABS: Hemoglobin 8.6 g/dL (12.9-16.9); Nucleated Red Blood Cells 0.3 /100 WBC (0)
[2017-03-12 03:20] LABS: Immature Platelets 5.9 % (1.1-6.1); Mean Corpuscular HGB Conc 33.1 g/dL (31.6-35.5); Mean Corpuscular Hemoglobin 30.1 pg (28.0-33.3); Mean Corpuscular Volume 90.9 fL (83.0-100.0); Mean Platelet Volume 12.1 fL (9.4-12.4); Red Blood Count 2.86 M/mcL (4.19-5.50); Red Cell Distribution Width 14.7 % (11.5-14.5)
[2017-03-12 03:28] LABS: Alanine Aminotransferase 10 Units/L (0-55); Albumin/Globulin Ratio 0.6 (1.1-2.2); Alkaline Phosphatase 85 Units/L (38-126); Aspartate Amino Transferase 47 Units/L (5-34); BUN/Creatinine Ratio 32 (6-26); Bilirubin,Total 0.5 mg/dL (0.2-1.2); Carbon Dioxide 23 mEq/L (19-29); Chloride 98 mEq/L (98-109); Globulin 3.5 g/dL (2.4-3.5); Glucose 115 mg/dL (70-99); Magnesium 1.1 mg/dL (1.6-2.6); Osmolality,Calculated 281 (280-300); Sodium 133 mEq/L (136-145); Total Protein 5.6 g/dL (6.0-8.3); eGFR For African Americans > 60 (> 60); eGFR For Non-African Americans > 60 (> 60)
[2017-03-12 03:29] LABS: Albumin 2.1 g/dL (3.5-5.0); Blood Urea Nitrogen 25 mg/dL (8-26); Calcium 10.3 mg/dL (8.6-10.8); Potassium 3.2 mEq/L (3.5-4.5)
[2017-03-12 04:02] LABS: Platelet Count 33 K/mcL (140-400)
[2017-03-12 04:09] LABS: Lymphocytes # 1.7 K/mcL (0.6-4.6); Monocytes # 0.5 K/mcL (0.0-1.3); Neutrophils # 5.5 K/mcL (1.6-8.9); Platelet Estimate Decreased (Normal)
[2017-03-12] MEDS: Ondansetron 4 MG/2 ML VIAL IVP SCH ×3 (05:54→16:35)
[2017-03-12] MEDS ORDERED: *HR* Morphine Immed Rel 15 MG TABLET PO PRN (07:49)
[2017-03-12] MEDS: Sennosides 8.6 MG TABLET PO SCH ×2 (08:02→21:13)
[2017-03-12] MEDS: Aspirin 81 MG TAB.CHEW PO SCH (08:02)
[2017-03-12] MEDS: *HR* Morphine Sulfate SR (12 HR) 15 MG TABLET.ER PO SCH ×3 (08:04→21:13)
--- NOTE | 2017-03-12 08:16 | Internal Med Progress Note ---
Date of Encounter: 03/12/17 Time of Encounter: 08:12 - Assessment and plan (1) Hypercalcemia of malignancy Current Visit: Yes Status: Acute (2) DEBORAH (acute kidney injury) Current Visit: Yes Status: Acute (3) Small cell carcinoma of right lung Current Visit: Yes Status: Acute (4) Thrombocytopenia Current Visit: Yes Status: Chronic (5) Coordination of complex care Current Visit: Yes Status: Acute (6) COPD (chronic obstructive pulmonary disease) Current Visit: No Status: Chronic Qualifiers: COPD type: unspecified COPD Qualified Code(s): J44.9 - Chronic obstructive pulmonary disease, unspecified (7) Hypomagnesemia Current Visit: Yes Status: Acute - Subjective Interval history: Mr. Ortiz is a 62 year old male with past medical history hyperlipidemia, hypertension, anxiety and small cell lung cancer undergoing chemotherapy. Patient presents to the ED for hypercalcemia. He had outpatient labs done by oncology and was advised to go to the ED. on admission his calcium was 14 and he had 2 rounds of calcitonin and Zometa which has brought his calcium down to 10.3. However his magnesium is only 1.1 while he was given 6 g yesterday and today potassium is down also therefore I will supplement both and recheck tomorrow. On admission he had a a DEBORAH which has resolved. He was aggressively hydrated. Repeat CBC CMP and magnesium daily. patient was complaining of pain and he will be started on his home regimen. Patient has also history of hypertension dyslipidemia and COPD and home medications will be restarted and patient will reassess on daily basis. Oncology feels that patient has poor prognosis due to rapid progression of disease and also due to her from just anemia of malignancy. Palliative care consulted And now patient is DNR/DNI. Overall he seems stable he does not need any oxygen and hemodynamically he is stable. - Constitutional Vitals: Temp Pulse Resp BP Pulse Ox 97.7 F 85 18 120/74 97 03/12/17 07:30 03/12/17 07:30 03/12/17 07:30 03/12/17 07:30 03/12/17 07:30 General appearance: Present: cachectic, A&O X 3, pleasant, no acute distress, underweight, answers questions appropriately - Head Head exam: Present: atraumatic, normocephalic - Eye Eye exam: Present: PERRL, conjuntiva pink, sclera anicteric Pupils: Present: PERRL - Neck Neck exam general surgery: Present: supple, trachea midline. Absent: lymphadenopathy - Respiratory Respiratory exam: Present: CTAB. Absent: accessory muscle use, rales, rhonchi, wheezes - Cardiovascular Cardiovascular exam: Present: RRR, +S1, +S2. Absent: diastolic murmur, gallop, rubs, systolic murmur - GI/Abdominal GI/Abdominal exam: Present: normal bowel sounds, soft, no peritoneal signs. Absent: distended, tenderness - Extremities Exam Extremities exam: Present: warm, radial pulses palpable and symmetrical. Absent : calf tenderness, cyanotic, pedal edema - Neurological Exam Neurological exam: Present: CN II-XII intact, oriented X3, no focal deficits. Absent: pronater drift, facial droop, speech deficit - Skin Skin exam: Present: dry, intact Internal Medicine: Result - Labs CBC & Chem 7: 03/12/17 03:08 03/12/17 03:08 Labs: Short CBC 03/12/17 Range/Units 03:08 WBC 7.8 (4.3-11.1) K/mcL Hgb 8.6 L (12.9-16.9) g/dL Hct 26.0 L (37.5-50.1) % Plt Count 33 L (140-400) K/mcL Neutrophils # 5.5 (1.6-8.9) K/mcL BMP 03/12/17 03:08 Sodium 133 L Potassium 3.2 L Chloride 98 Carbon Dioxide 23 BUN 25 D Creatinine 0.77 Glucose 115 H Calcium 10.3 D Liver Function 03/12/17 Range/Units 03:08 Total Bilirubin 0.5 (0.2-1.2) mg/dL AST 47 H (5-34) Units/L ALT 10 (0-55) Units/L Alkaline Phosphatase 85 (38-126) Units/L Albumin 2.1 L (3.5-5.0) g/dL - VTE Documentation of Mechanical Device: Intermittent pneumatic compression device Consult Discharge Plan - Plan Referrals: Evan Rizo MD [Primary Care Provider] - 03/18/17 1:15 pm Prescriptions: Morphine Sulfate SR (12 HR) [MS Contin] 1 tab PO Q8HR #30 tab Dexamethasone [Decadron] 4 mg PO BID #10 tab Morphine Immed Rel [Morphine Sulfate] 15 mg PO Q2H PRN #90 tab PRN Reason: pain or sob
[2017-03-12] MEDS: Magnesium Sulfate 2 GM in D5% in Water 100 ML IVPB SCH ×3 (10:24→12:59)
--- NOTE | 2017-03-12 10:42 | Palliative Progress Note ---
Date of Encounter: 03/12/17 Time of Encounter: 09:20 - Assessment and plan (1) Constipation by delayed colonic transit Current Visit: Yes Status: Acute Assessment and plan: Continue bowel regimen. (2) Counseling regarding goals of care Current Visit: Yes Status: Acute Assessment and plan: Patient DNR CCA DNI. At this time the patient does wish to continue getting therapy from the cancer center. I have discussed case with the oncology. They may have therapy to offer with regards to the bony metastases. And possibly even with the small cell lung cancer. He is agreeable to trying the [id number] medication to see if that helps. (3) Nausea alone Current Visit: Yes Status: Acute Assessment and plan: Patient refused Zofran yesterday, but still having nausea when he tries to eat or drink. I have asked him to consider trying it to see if this helps. He has agreed. We will continue to watch. (4) Small cell carcinoma of right lung Current Visit: Yes Status: Acute Assessment and plan: Chemotherapy currently on hold, patient is interested in continuing this if it is helpful. Also discussing with radiation oncology as to what they have to offer. (5) Hypercalcemia Current Visit: Yes Status: Acute Assessment and plan: Calcium coming down nicely with therapy and fluids. Plan per hospitalist team (6) DEBORAH (acute kidney injury) Current Visit: Yes Status: Acute Assessment and plan: Resolving with IV fluids (7) Bone pain Current Visit: Yes Status: Acute Assessment and plan: Pain is currently under good control. 2 new current medications. - Time Spent With Patient Total time spent is greater than 50% in coordination of care (as documented) at patient's floor/unit and/or counseling patient: - Constitutional Vitals: Abnormal lab results RBC 2.86 M/mcL (4.19-5.50) L 03/12/17 03:08 Hgb 8.6 g/dL (12.9-16.9) L 03/12/17 03:08 Hct 26.0 % (37.5-50.1) L 03/12/17 03:08 RDW 14.7 % (11.5-14.5) H 03/12/17 03:08 Plt Count 33 K/mcL (140-400) L 03/12/17 03:08 Immature Gran % 8.3 % (0-4) H 03/11/17 03:30 Band Neutrophils % 18.0 % (0-4) H 03/12/17 03:08 Myelocytes % 2.0 % (0) H 03/12/17 03:08 Nucleated RBCs/100 WBC 0.3 /100 WBC (0) H 03/12/17 03:08 Platelet Estimate Decreased (Normal) L 03/12/17 03:08 Sodium 133 mEq/L (136-145) L 03/12/17 03:08 Potassium 3.2 mEq/L (3.5-4.5) L 03/12/17 03:08 BUN/Creatinine Ratio 32 (6-26) H 03/12/17 03:08 Glucose 115 mg/dL (70-99) H 03/12/17 03:08 Uric Acid 12.1 mg/dL (3.5-7.2) H 03/11/17 04:35 Ionized Calcium 1.55 mmol/L (1.15-1.35) H 03/10/17 01:00 Magnesium 1.1 mg/dL (1.6-2.6) L 03/12/17 03:08 AST 47 Units/L (5-34) H 03/12/17 03:08 Lactate Dehydrogenase 1641 Units/L (159-327) H 03/11/17 04:35 Serum Total Protein 5.6 g/dL (6.0-8.3) L 03/12/17 03:08 Albumin 2.1 g/dL (3.5-5.0) L 03/12/17 03:08 Albumin/Globulin Ratio 0.6 (1.1-2.2) L 03/12/17 03:08 PTH Intact 6.1 pg/ml (8.5-72.5) L 03/10/17 01:05 Palliative Quality Palliative Quality: Screen for Code Status: Yes, Screen for Goals of Care: Yes, Screen for Pain: Yes, If Pain Regimen Started, Initiate Bowel Regimen: Yes, Screen for Nausea/Vomitting: Yes Code Status: 03/10/17 23:36 Resuscitation Status: Active [RES] Routine Comment: Resuscitation Status: [id number] - Labs CBC & Chem 7: 03/12/17 03:08 03/12/17 03:08 Labs: Laboratory Results - last 24 hr 03/11/17 03/12/17 03/12/17 04:35 03:08 03:08 WBC 7.8 RBC 2.86 L Hgb 8.6 L Hct 26.0 L MCV 90.9 MCH 30.1 MCHC 33.1 RDW 14.7 H Plt Count 33 L MPV 12.1 Seg Neutrophils % 52.0 Band Neutrophils % 18.0 H Lymphocytes % 22.0 Monocytes % 6.0 Myelocytes % 2.0 H Neutrophils # 5.5 Lymphocytes # 1.7 Monocytes # 0.5 Nucleated RBCs/100 WBC 0.3 H Platelet Estimate Decreased L Immature Plt Fraction 5.9 Sodium 133 L Potassium 3.2 L Chloride 98 Carbon Dioxide 23 BUN 25 D Creatinine 0.77 Est GFR ( Amer) > 60 Est GFR (Non-Af Amer) > 60 BUN/Creatinine Ratio 32 H Glucose 115 H Calculated Osmolality 281 Calcium 10.3 D Magnesium 1.1 L Total Bilirubin 0.5 AST 47 H ALT 10 Alkaline Phosphatase 85 Serum Total Protein 5.6 L Albumin 2.1 L Globulin 3.5 Albumin/Globulin Ratio 0.6 L 25-OH Vitamin D Total 41 Consult Discharge Plan - Plan Referrals: Evan Rizo MD [Primary Care Provider] - 03/18/17 1:15 pm
--- NOTE | 2017-03-12 12:42 | Oncology Inp Progress Note ---
Date of Encounter: 03/12/17 Time of Encounter: 10:00 (1) Hypercalcemia Current Visit: Yes Status: Acute Assessment and plan: - Clinical picture consistent with hypercalcemia of malignancy. - Serum calcium values have normalized after receiving calcitonina, and 5 mg of zoledronic acid. No need to repeat either one during current admission. - Upon discharge please arrange for weekly labs, including BMP, Mg, Phosphorus. (2) Small cell carcinoma of right lung Current Visit: Yes Status: Acute Assessment and plan: -Currently on C5D32 of palliative chemotherapy with carbo/Etoposide. Cycle 6 was due on 03/03 but postponed due to acute anemia and thrombocytopenia. - I appreciate palliative care input, and outcome of discussion of goals of care. Code status changed to DNR-Comfort care-Arrest DNI. He expressed his decision to pursue further chemotherapy. Upon discharge, please arrange follow up with Dr. Sandhu to discuss options of systemic therapy. - He may benefit from palliative radiation in view of his multiple painful bone lesions, but at this time there is not indication for inpatient care in view of significant improvement with current pain management. Please arrange for an office appointment with radiation oncology to discuss options of palliative radiation. (3) Thrombocytopenia Current Visit: Yes Status: Chronic Assessment and plan: - Overall stable in the 30s, slightly trending up. - No indication for platelet transfusion at this time, unless counts drop below 30K or if the develops active bleeding ( with goal of 50K). - Transfuse 1 PRBC for Hemoglobin levels < 7 g/dl. (4) Hyperuricemia Current Visit: Yes Status: Acute Assessment and plan: - Associated to malignancy. - Please order single dose of rasburicase 3 mg x 1 and start allopurinol 300 mg PO daily. - Repeat Uric acid levels to confirm normalization after therapy. (5) Magnesium disorder Current Visit: Yes Status: Acute Assessment and plan: - I agree with IV replacement of Magnesium. - Monitor Mg levels upon discharge in a weekly basis. - PO magnesium supplementation. (6) Hypokalemia Current Visit: Yes Status: Acute Assessment and plan: - I agree with ongoing replacement. May need to be discharge on PO potassium supplementation. Oncology: Subj Interval history: Reports feeling better. Calcium levels trending down. Ambulating inside the room , no complaints. Tolerating meals. Denies bleeding events. Reports persistent pain, but definitely improved, now 09/04. No radiated. Present in same areas: both shoulders, hips, rib cage, not predominant painful area. - Constitutional Vitals: Vital Signs Temp Pulse Resp BP Pulse Ox 03/12/17 11:04 97.5 F L 77 18 106/69 99 03/12/17 07:30 97.7 F 85 18 120/74 97 03/12/17 03:43 98.2 F 87 20 105/72 97 03/11/17 23:49 98.4 F 94 16 124/71 99 03/11/17 20:13 90 03/11/17 19:26 98.3 F 89 21 117/64 96 03/11/17 15:55 98.2 F 87 20 109/61 96 03/11/17 15:00 91 Intake and Output 03/11/17 03/12/17 03/12/17 23:59 07:59 15:59 Intake Total 808 / 808 1999 / 1999 902 / 902 Output Total 325 / 325 900 / 900 200 / 200 Balance 483 / 483 1100 / 1100 702 / 702 Intake: IV Fluids 808 / 808 1999 / 1999 432 / 432 0.9 % Sodium Chloride 1, 600 / 600 1999 / 1999 332 / 332 000 ML @ 150 mls/hr IVC . Q6H40M [facility] Rx#:[id number] Magnesium Sulfate 2 GM In 208 / 208 100 / 100 Dextrose 5% 100 ML @ 100 mls/hr IVPB ONCE [facility] Rx# :[id number] Oral 470 / 470 Output: Urine 325 / 325 900 / 900 200 / 200 Other: Meal Breakfast Percent of Meal Consumed 0% Weight 48.4 kg Patient Weight 03/12/17 23:59 Weight 48.4 kg - Head Head exam: Present: normal inspection - Eye Eye exam: Present: EOMI - ENT ENT exam: Present: mucous membranes moist - Respiratory Respiratory exam: Present: CTAB - Cardiovascular Cardiovascular exam: Absent: gallop, JVD - GI/Abdominal GI/Abdominal exam: Absent: normal bowel sounds, organomegaly - Extremities Exam Extremities exam: Present: normal inspection - Neurological Exam Neurological exam: Present: alert, altered, CN II-XII intact - Psychiatric Psychiatric exam: Present: normal affect, normal mood - Skin Skin exam: Present: normal color. Absent: pallor Oncology: Obj Data - Labs CBC & Chem 7: 03/12/17 03:08 03/12/17 03:08 Labs: Laboratory Results - last 24 hr 03/11/17 03/12/17 03/12/17 04:35 03:08 03:08 WBC 7.8 RBC 2.86 L Hgb 8.6 L Hct 26.0 L MCV 90.9 MCH 30.1 MCHC 33.1 RDW 14.7 H Plt Count 33 L MPV 12.1 Seg Neutrophils % 52.0 Band Neutrophils % 18.0 H Lymphocytes % 22.0 Monocytes % 6.0 Myelocytes % 2.0 H Neutrophils # 5.5 Lymphocytes # 1.7 Monocytes # 0.5 Nucleated RBCs/100 WBC 0.3 H Platelet Estimate Decreased L Immature Plt Fraction 5.9 Sodium 133 L Potassium 3.2 L Chloride 98 Carbon Dioxide 23 BUN 25 D Creatinine 0.77 Est GFR ( Amer) > 60 Est GFR (Non-Af Amer) > 60 BUN/Creatinine Ratio 32 H Glucose 115 H Calculated Osmolality 281 Calcium 10.3 D Magnesium 1.1 L Total Bilirubin 0.5 AST 47 H ALT 10 Alkaline Phosphatase 85 Serum Total Protein 5.6 L Albumin 2.1 L Globulin 3.5 Albumin/Globulin Ratio 0.6 L 25-OH Vitamin D Total 41 Consult Discharge Plan - Plan Referrals: Evan Rizo MD [Primary Care Provider] - 03/18/17 1:15 pm
--- NOTE | 2017-03-12 15:14 | Event Note ---
Date of Encounter: 03/12/17 Time of Encounter: 15:13 Have confirmed with oars report the patient is due for refills this week. Patient's family has contacted the cancer Center and should be able to get a refill today they were able to get the ir morphine so i provided the er morphine and the decadron this weas filled today for d/c prob tomorrow. I have communicated this with Abraham Zheng cnp for the cancer center. He has assured me of follow up on the prescription next week if needed.
[2017-03-12] MEDS: Gabapentin 300 MG CAPSULE PO SCH (21:13)
[2017-03-13] MEDS: Ondansetron 4 MG/2 ML VIAL IVP SCH ×5 (00:32→23:56)
[2017-03-13 04:30] LABS: Hematocrit 23.7 % (37.5-50.1); Mean Corpuscular HGB Conc 33.8 g/dL (31.6-35.5)
[2017-03-13 04:32] LABS: Mean Corpuscular Hemoglobin 30.4 pg (28.0-33.3); Mean Corpuscular Volume 90.1 fL (83.0-100.0); Red Blood Count 2.63 M/mcL (4.19-5.50); Red Cell Distribution Width 14.6 % (11.5-14.5)
[2017-03-13 04:49] LABS: Alanine Aminotransferase 10 Units/L (0-55); Albumin/Globulin Ratio 0.6 (1.1-2.2); Alkaline Phosphatase 83 Units/L (38-126); Aspartate Amino Transferase 39 Units/L (5-34); BUN/Creatinine Ratio 26 (6-26); Bilirubin,Total 0.4 mg/dL (0.2-1.2); Blood Urea Nitrogen 18 mg/dL (8-26); Calcium 8.7 mg/dL (8.6-10.8); Carbon Dioxide 24 mEq/L (19-29); Chloride 100 mEq/L (98-109); Globulin 3.3 g/dL (2.4-3.5); Glucose 115 mg/dL (70-99); Magnesium 1.1 mg/dL (1.6-2.6); Osmolality,Calculated 277 (280-300); Potassium 3.4 mEq/L (3.5-4.5); Sodium 132 mEq/L (136-145); Total Protein 5.3 g/dL (6.0-8.3); eGFR For African Americans > 60 (> 60); eGFR For Non-African Americans > 60 (> 60)
[2017-03-13 05:20] LABS: Platelet Count 36 K/mcL (140-400)
[2017-03-13 05:24] LABS: Basophils # 0.2 K/mcL (0.0-0.2); Lymphocytes # 1.9 K/mcL (0.6-4.6); Monocytes # 0.9 K/mcL (0.0-1.3); Neutrophils # 4.4 K/mcL (1.6-8.9); Platelet Estimate Marked Decrease (Normal); Reactive Lymphocytes Present (Not Present)
[2017-03-13 05:25] LABS: Anisocytosis 1+ (Not Present)
[2017-03-13] MEDS: 0.9 % Sodium Chloride 1,000 ML IVC SCH ×2 (06:37→16:26)
[2017-03-13] MEDS: Sennosides 8.6 MG TABLET PO SCH ×2 (08:57→21:13)
[2017-03-13] MEDS: Aspirin 81 MG TAB.CHEW PO SCH (08:57)
[2017-03-13] MEDS: *HR* Morphine Sulfate SR (12 HR) 15 MG TABLET.ER PO SCH ×3 (08:57→21:13)
--- NOTE | 2017-03-13 11:14 | Oncology Inp Progress Note ---
Date of Encounter: 03/13/17 Time of Encounter: 11:12 (1) Hypercalcemia of malignancy Current Visit: Yes Status: Acute Assessment and plan: Resolved with fluids, calcitonin and zometa. Calcium level normal today. Will f/u as outpatient. (2) Small cell carcinoma of right lung Current Visit: Yes Status: Acute Assessment and plan: Presentation concerning for progression. In addition, persistent thrombocytopenia precludes further chemotherapy at this time. Will ultimately defer to Dr. Sandhu, but likely may benefit to change to Ipi/Nivo. Consider repeat imaging as outpatient. (3) Thrombocytopenia Current Visit: Yes Status: Chronic Assessment and plan: Stable. Will f/u as outpatient. (4) DEBORAH (acute kidney injury) Current Visit: Yes Status: Acute Assessment and plan: Secondary to hypercalcemia, resolved. No need for allopurinol or rasburicase at current. May d/c to home from my perspective. Will arrange for f/u this week with Dr. Sandhu. Oncology: Subj Interval history: Feeling well and breathing comfortably. No new aches or pains. No fever or chills. Anxious to go home. - Constitutional Vitals: Vital Signs Temp Pulse Resp BP Pulse Ox 03/13/17 11:06 97.8 F 89 16 126/74 95 03/13/17 07:48 98.1 F 88 18 110/71 95 03/13/17 03:37 98.9 F 85 16 105/67 93 03/12/17 19:16 98.9 F 91 16 115/63 94 03/12/17 16:31 98.3 F 79 18 94 03/12/17 16:14 78 90/55 95 Intake and Output 03/13/17 03/13/17 03/13/17 00:59 08:59 16:59 Intake Total 668 / 668 1250 / 1250 Output Total 0 / 0 650 / 650 0 / 0 Balance 668 / 668 600 / 600 0 / 0 Intake: IV Fluids 668 / 668 1000 / 1000 0.9 % Sodium Chloride 1, 668 / 668 1000 / 1000 000 ML @ 80 mls/hr IVC . [id number] FORMERLY [facility], 1928–1983 Rx#: [id number] Oral 0 / 0 250 / 250 Output: Urine 0 / 0 650 / 650 0 / 0 - Head Head exam: Present: atraumatic, normal inspection, normocephalic - Eye Eye exam: Present: conjuntiva pink, sclera anicteric - ENT ENT exam: Present: mucous membranes moist, normal exam - Neck Neck exam: Present: normal inspection, tenderness - Respiratory Respiratory exam: Present: decreased breath sounds, CTAB - Cardiovascular Cardiovascular exam: Present: RRR - GI/Abdominal GI/Abdominal exam: Present: soft - Extremities Exam Extremities exam: Present: normal capillary refill, normal inspection - Neurological Exam Neurological exam: Present: alert, CN II-XII intact Oncology: Obj Data - Labs CBC & Chem 7: 03/13/17 04:16 03/13/17 04:16 Labs: Laboratory Results - last 24 hr 03/13/17 03/13/17 04:16 04:16 WBC 7.4 RBC 2.63 L Hgb 8.0 L Hct 23.7 L MCV 90.1 MCH 30.4 MCHC 33.8 RDW 14.6 H Plt Count 36 L MPV 12.0 Seg Neutrophils % 56.0 Band Neutrophils % 4.0 Lymphocytes % 26.0 Monocytes % 12.0 Basophils % 2.0 Neutrophils # 4.4 Lymphocytes # 1.9 Monocytes # 0.9 Basophils # 0.2 Reactive Lymphocytes Present A Platelet Estimate Marked Decrease L Immature Plt Fraction 6.0 Anisocytosis 1+ A Sodium 132 L Potassium 3.4 L Chloride 100 Carbon Dioxide 24 BUN 18 Creatinine 0.70 L Est GFR ( Amer) > 60 Est GFR (Non-Af Amer) > 60 BUN/Creatinine Ratio 26 Glucose 115 H Calculated Osmolality 277 L Calcium 8.7 D Magnesium 1.1 L Total Bilirubin 0.4 AST 39 H ALT 10 Alkaline Phosphatase 83 Serum Total Protein 5.3 L Albumin 2.0 L Globulin 3.3 Albumin/Globulin Ratio 0.6 L Consult Discharge Plan - Plan Referrals: Evan Rizo MD [Primary Care Provider] - 03/18/17 1:15 pm Prescriptions: Dexamethasone [Decadron] 4 mg PO BID #10 tab Morphine Immed Rel [Morphine Sulfate] 15 mg PO Q2H PRN #90 tab PRN Reason: pain or sob Morphine Sulfate SR (12 HR) [MS Contin] 1 tab PO Q8HR #30 tab
[2017-03-13] MEDS ORDERED: Potassium Chloride 40 MEQ, Lidocaine 1% 2 ML in D5% in Water 500 ML IVPB ONE (11:58)
--- NOTE | 2017-03-13 12:00 | Internal Med Progress Note ---
Date of Encounter: 03/13/17 Time of Encounter: 11:59 - Assessment and plan (1) Hypercalcemia of malignancy Current Visit: Yes Status: Acute (2) DEBORAH (acute kidney injury) Current Visit: Yes Status: Acute (3) Small cell carcinoma of right lung Current Visit: Yes Status: Acute (4) Thrombocytopenia Current Visit: Yes Status: Chronic (5) Coordination of complex care Current Visit: Yes Status: Acute (6) COPD (chronic obstructive pulmonary disease) Current Visit: No Status: Chronic Qualifiers: COPD type: unspecified COPD Qualified Code(s): J44.9 - Chronic obstructive pulmonary disease, unspecified (7) Hypomagnesemia Current Visit: Yes Status: Acute - Subjective Interval history: Mr. Ortiz is a 62 year old male with past medical history hyperlipidemia, hypertension, anxiety and small cell lung cancer undergoing chemotherapy. Patient presents to the ED for hypercalcemia. He had outpatient labs done by oncology and was advised to go to the ED. on admission his calcium was 14 and he had 2 rounds of calcitonin and Zometa which has brought his calcium down to 10.3. However his magnesium is only 1.1 while he was given 6 g yesterday and today potassium is down also therefore I will supplement both and recheck tomorrow. Amiloride 5mg daily and magnesium oxide 800 twice a day will be added to On admission he had a a DEBORAH which has resolved. He was aggressively hydrated. Repeat CBC CMP and magnesium daily. patient was complaining of pain and he will be started on his home regimen. Patient has also history of hypertension dyslipidemia and COPD and home medications will be restarted and patient will reassess on daily basis. Oncology feels that patient has poor prognosis due to rapid progression of disease and also due to her from just anemia of malignancy. From oncology perspective the patient can be discharged. Palliative care consulted And now patient is DNR/DNI. Overall he seems stable he does not need any oxygen and hemodynamically he is stable. - Constitutional Vitals: Temp Pulse Resp BP Pulse Ox 97.8 F 89 16 126/74 95 03/13/17 11:06 03/13/17 11:06 03/13/17 11:06 03/13/17 11:06 03/13/17 11:06 General appearance: Present: cachectic, A&O X 3, pleasant, no acute distress, underweight, answers questions appropriately - Head Head exam: Present: atraumatic, normocephalic - Eye Eye exam: Present: PERRL, conjuntiva pink, sclera anicteric Pupils: Present: PERRL - Neck Neck exam general surgery: Present: supple, trachea midline. Absent: lymphadenopathy - Respiratory Respiratory exam: Present: CTAB. Absent: accessory muscle use, rales, rhonchi, wheezes - Cardiovascular Cardiovascular exam: Present: RRR, +S1, +S2. Absent: diastolic murmur, gallop, rubs, systolic murmur - GI/Abdominal GI/Abdominal exam: Present: normal bowel sounds, soft, no peritoneal signs. Absent: distended, tenderness - Extremities Exam Extremities exam: Present: warm, radial pulses palpable and symmetrical. Absent : calf tenderness, cyanotic, pedal edema - Neurological Exam Neurological exam: Present: CN II-XII intact, oriented X3, no focal deficits. Absent: pronater drift, facial droop, speech deficit - Skin Skin exam: Present: dry, intact Internal Medicine: Result - Labs CBC & Chem 7: 03/13/17 04:16 03/13/17 04:16 Labs: Short CBC 03/13/17 Range/Units 04:16 WBC 7.4 (4.3-11.1) K/mcL Hgb 8.0 L (12.9-16.9) g/dL Hct 23.7 L (37.5-50.1) % Plt Count 36 L (140-400) K/mcL Neutrophils # 4.4 (1.6-8.9) K/mcL BMP 03/13/17 04:16 Sodium 132 L Potassium 3.4 L Chloride 100 Carbon Dioxide 24 BUN 18 Creatinine 0.70 L Glucose 115 H Calcium 8.7 D Liver Function 03/13/17 Range/Units 04:16 Total Bilirubin 0.4 (0.2-1.2) mg/dL AST 39 H (5-34) Units/L ALT 10 (0-55) Units/L Alkaline Phosphatase 83 (38-126) Units/L Albumin 2.0 L (3.5-5.0) g/dL - VTE Documentation of Mechanical Device: Intermittent pneumatic compression device Consult Discharge Plan - Plan Referrals: Evan Rizo MD [Primary Care Provider] - 03/18/17 1:15 pm Prescriptions: Morphine Sulfate SR (12 HR) [MS Contin] 1 tab PO Q8HR #30 tab Dexamethasone [Decadron] 4 mg PO BID #10 tab Morphine Immed Rel [Morphine Sulfate] 15 mg PO Q2H PRN #90 tab PRN Reason: pain or sob
[2017-03-13] MEDS: aMILoride 5 MG TABLET PO SCH (12:35)
[2017-03-13] MEDS: Magnesium Oxide 400 MG TABLET PO SCH ×2 (12:36→21:13)
[2017-03-13] MEDS: Magnesium Sulfate 2 GM in D5% in Water 100 ML IVPB SCH ×3 (13:51→16:26)
[2017-03-13] MEDS: Gabapentin 300 MG CAPSULE PO SCH (21:12)
[2017-03-13] MEDS: *HR* Morphine Immed Rel 30 MG TABLET PO PRN (23:57)
[2017-03-14 03:38] LABS: Hemoglobin 7.9 g/dL (12.9-16.9); Mean Corpuscular Hemoglobin 29.5 pg (28.0-33.3); Red Blood Count 2.68 M/mcL (4.19-5.50); Red Cell Distribution Width 14.6 % (11.5-14.5)
[2017-03-14 03:40] LABS: Immature Platelets 6.7 % (1.1-6.1); Mean Corpuscular HGB Conc 32.9 g/dL (31.6-35.5); Mean Corpuscular Volume 89.6 fL (83.0-100.0); Mean Platelet Volume 10.8 fL (9.4-12.4); Nucleated Red Blood Cells 0.2 /100 WBC (0)
[2017-03-14 03:42] LABS: Platelet Count 39 K/mcL (140-400)
[2017-03-14 03:55] LABS: Alanine Aminotransferase 10 Units/L (0-55); Albumin 2.1 g/dL (3.5-5.0); Albumin/Globulin Ratio 0.6 (1.1-2.2); Alkaline Phosphatase 86 Units/L (38-126); Aspartate Amino Transferase 46 Units/L (5-34); BUN/Creatinine Ratio 21 (6-26); Bilirubin,Total 0.5 mg/dL (0.2-1.2); Blood Urea Nitrogen 15 mg/dL (8-26); Calcium 7.9 mg/dL (8.6-10.8); Carbon Dioxide 23 mEq/L (19-29); Chloride 99 mEq/L (98-109); Globulin 3.3 g/dL (2.4-3.5); Glucose 124 mg/dL (70-99); Magnesium 1.4 mg/dL (1.6-2.6); Osmolality,Calculated 270 (280-300); Potassium 3.9 mEq/L (3.5-4.5); Sodium 129 mEq/L (136-145); Total Protein 5.4 g/dL (6.0-8.3); eGFR For African Americans > 60 (> 60); eGFR For Non-African Americans > 60 (> 60)
[2017-03-14 04:02] LABS: Neutrophils # 5.1 K/mcL (1.6-8.9); Platelet Estimate Decreased (Normal); Reactive Lymphocytes Present (Not Present)
[2017-03-14] MEDS: 0.9 % Sodium Chloride 1,000 ML IVC SCH (05:29)
[2017-03-14] MEDS: Ondansetron 4 MG/2 ML VIAL IVP SCH ×4 (05:30→23:37)
[2017-03-14] MEDS ORDERED: Furosemide 20 MG/2 ML VIAL IVP ONE (07:59)
[2017-03-14] MEDS: aMILoride 5 MG TABLET PO SCH (08:24)
[2017-03-14] MEDS: *HR* Morphine Sulfate SR (12 HR) 15 MG TABLET.ER PO SCH ×3 (08:24→20:19)
[2017-03-14] MEDS: Aspirin 81 MG TAB.CHEW PO SCH (08:24)
[2017-03-14] MEDS: Sennosides 8.6 MG TABLET PO SCH ×2 (08:24→20:19)
[2017-03-14] MEDS: Magnesium Oxide 400 MG TABLET PO SCH ×2 (08:25→20:19)
[2017-03-14] MEDS: Magnesium Sulfate 2 GM in D5% in Water 100 ML IVPB SCH ×3 (10:01→13:12)
--- NOTE | 2017-03-14 15:13 | Internal Med Progress Note ---
Date of Encounter: 03/14/17 Time of Encounter: 15:10 - Assessment and plan (1) Hypercalcemia of malignancy Current Visit: Yes Status: Acute (2) DEBORAH (acute kidney injury) Current Visit: Yes Status: Acute (3) Small cell carcinoma of right lung Current Visit: Yes Status: Acute (4) Thrombocytopenia Current Visit: Yes Status: Chronic (5) Coordination of complex care Current Visit: Yes Status: Acute (6) COPD (chronic obstructive pulmonary disease) Current Visit: No Status: Chronic Qualifiers: COPD type: unspecified COPD Qualified Code(s): J44.9 - Chronic obstructive pulmonary disease, unspecified (7) Hypomagnesemia Current Visit: Yes Status: Acute - Subjective Interval history: Mr. Ortiz is a 62 year old male with past medical history hyperlipidemia, hypertension, anxiety and small cell lung cancer undergoing chemotherapy. Patient presents to the ED for hypercalcemia. He had outpatient labs done by oncology and was advised to go to the ED. on admission his calcium was 14 and he had 2 rounds of calcitonin and Zometa which has brought his calcium down to 7.9 now. However his magnesium was persistently low therefore patient was restarted on. Amiloride 5mg daily and magnesium oxide 800 twice a day . Now magnesium is 1.4 and he will be given 6 g of magnesium today and repeat check in the morning. to On admission he had a a DEBORAH which has resolved. He was aggressively hydrated and sodium is 129 therefore IV fluids will be stopped and 1 dose of Lasix will be given.. Repeat CBC CMP and magnesium daily. patient was complaining of pain and he will be started on his home regimen. Patient has also history of hypertension dyslipidemia and COPD and home medications will be restarted and patient will reassess on daily basis. Oncology feels that patient has poor prognosis due to rapid progression of disease and also due to her from just anemia of malignancy. From oncology perspective the patient can be discharged. Palliative care consulted And now patient is DNR/ DNI. Overall he seems stable he does not need any oxygen and hemodynamically he is stable. - Constitutional Vitals: Temp Pulse Resp BP Pulse Ox 98.7 F 88 14 122/75 97 03/14/17 15:07 03/14/17 15:07 03/14/17 15:07 03/14/17 15:07 03/14/17 15:07 General appearance: Present: cachectic, A&O X 3, pleasant, no acute distress, underweight, answers questions appropriately - Head Head exam: Present: atraumatic, normocephalic - Eye Eye exam: Present: PERRL, conjuntiva pink, sclera anicteric Pupils: Present: PERRL - Neck Neck exam general surgery: Present: supple, trachea midline. Absent: lymphadenopathy - Respiratory Respiratory exam: Present: CTAB. Absent: accessory muscle use, rales, rhonchi, wheezes - Cardiovascular Cardiovascular exam: Present: RRR, +S1, +S2. Absent: diastolic murmur, gallop, rubs, systolic murmur - GI/Abdominal GI/Abdominal exam: Present: normal bowel sounds, soft, no peritoneal signs. Absent: distended, tenderness - Extremities Exam Extremities exam: Present: warm, radial pulses palpable and symmetrical. Absent : calf tenderness, cyanotic, pedal edema - Neurological Exam Neurological exam: Present: CN II-XII intact, oriented X3, no focal deficits. Absent: pronater drift, facial droop, speech deficit - Skin Skin exam: Present: dry, intact Internal Medicine: Result - Labs CBC & Chem 7: 03/14/17 03:30 03/14/17 03:30 Labs: Short CBC 03/14/17 Range/Units 03:30 WBC 8.5 (4.3-11.1) K/mcL Hgb 7.9 L (12.9-16.9) g/dL Hct 24.0 L (37.5-50.1) % Plt Count 39 L (140-400) K/mcL Neutrophils # 5.1 (1.6-8.9) K/mcL BMP 03/14/17 03:30 Sodium 129 L Potassium 3.9 Chloride 99 Carbon Dioxide 23 BUN 15 Creatinine 0.70 L Glucose 124 H Calcium 7.9 L Liver Function 03/14/17 Range/Units 03:30 Total Bilirubin 0.5 (0.2-1.2) mg/dL AST 46 H (5-34) Units/L ALT 10 (0-55) Units/L Alkaline Phosphatase 86 (38-126) Units/L Albumin 2.1 L (3.5-5.0) g/dL - VTE Documentation of Mechanical Device: Intermittent pneumatic compression device Consult Discharge Plan - Plan Referrals: Evan Rizo MD [Primary Care Provider] - 03/18/17 1:15 pm Prescriptions: Morphine Sulfate SR (12 HR) [MS Contin] 1 tab PO Q8HR #30 tab Dexamethasone [Decadron] 4 mg PO BID #10 tab Morphine Immed Rel [Morphine Sulfate] 15 mg PO Q2H PRN #90 tab PRN Reason: pain or sob
[2017-03-14] MEDS: *HR* Morphine Immed Rel 30 MG TABLET PO PRN ×2 (16:22→22:35)
[2017-03-14] MEDS: Gabapentin 300 MG CAPSULE PO SCH (20:20)
[2017-03-15] MEDS: *HR* Morphine Immed Rel 30 MG TABLET PO PRN ×2 (03:39→13:38)
[2017-03-15 04:42] LABS: Alanine Aminotransferase 12 Units/L (0-55); Albumin 2.1 g/dL (3.5-5.0); Albumin/Globulin Ratio 0.6 (1.1-2.2); Alkaline Phosphatase 90 Units/L (38-126); Aspartate Amino Transferase 53 Units/L (5-34); BUN/Creatinine Ratio 21 (6-26); Bilirubin,Total 0.6 mg/dL (0.2-1.2); Blood Urea Nitrogen 15 mg/dL (8-26); Calcium 7.4 mg/dL (8.6-10.8); Carbon Dioxide 23 mEq/L (19-29); Chloride 96 mEq/L (98-109); Globulin 3.3 g/dL (2.4-3.5); Glucose 108 mg/dL (70-99); Osmolality,Calculated 263 (280-300); Potassium 4.6 mEq/L (3.5-4.5); Sodium 126 mEq/L (136-145); Total Protein 5.4 g/dL (6.0-8.3); eGFR For African Americans > 60 (> 60); eGFR For Non-African Americans > 60 (> 60)
[2017-03-15] MEDS: Ondansetron 4 MG/2 ML VIAL IVP SCH ×2 (05:33→12:20)
[2017-03-15 07:46] LABS: Vitamin D 1,25 Dihydroxy 8.8 pg/mL (19.9-79.3)
[2017-03-15] MEDS: Aspirin 81 MG TAB.CHEW PO SCH (08:55)
[2017-03-15] MEDS: Magnesium Oxide 400 MG TABLET PO SCH (08:56)
[2017-03-15] MEDS: Sennosides 8.6 MG TABLET PO SCH (08:56)
[2017-03-15] MEDS: aMILoride 5 MG TABLET PO SCH (08:56)
[2017-03-15] MEDS: *HR* Morphine Sulfate SR (12 HR) 15 MG TABLET.ER PO SCH ×2 (08:56→16:03)
--- NOTE | 2017-03-15 09:04 | Event Note ---
Date of Encounter: 03/15/17 Time of Encounter: 09:03 Patient still hospitalized due to electrolyte abnormalities which are being addressed by the hospitalist team. Since CODE STATUS is well established, goals of care for the patient returned to getting chemotherapy at this is at all possible. I have assisted with getting the patient his medications at home. He will follow up with the cancer center for further prescriptions. As these issues have now been dealt with with her palliative issues at this time with him, we will go ahead and sign off. Please feel free to reconsult at any time. he will follow up with the cancer center.
[2017-03-15] MEDS ORDERED: WATER IVPB ONE (10:57)
[2017-03-15] MEDS ORDERED: MAGNESIUM SULFATE IVPB ONE (10:57)
[2017-03-15] MEDS ORDERED: D5 IVPB ONE (10:57)
[2017-03-15] MEDS ORDERED: 0.9 % Sodium Chloride 1,000 ML IVC SCH (11:00)
--- NOTE | 2017-03-15 11:02 | Internal Med Progress Note ---
Date of Encounter: 03/15/17 Time of Encounter: 10:59 - Assessment and plan (1) Hypercalcemia of malignancy Current Visit: Yes Status: Acute (2) DEBORAH (acute kidney injury) Current Visit: Yes Status: Acute (3) Small cell carcinoma of right lung Current Visit: Yes Status: Acute (4) Thrombocytopenia Current Visit: Yes Status: Chronic (5) Coordination of complex care Current Visit: Yes Status: Acute (6) COPD (chronic obstructive pulmonary disease) Current Visit: No Status: Chronic Qualifiers: COPD type: unspecified COPD Qualified Code(s): J44.9 - Chronic obstructive pulmonary disease, unspecified (7) Hypomagnesemia Current Visit: Yes Status: Acute (8) Hyponatremia Current Visit: Yes Status: Acute - Subjective Interval history: Mr. Ortiz is a 62 year old male with past medical history hyperlipidemia, hypertension, anxiety and small cell lung cancer undergoing chemotherapy. Patient presents to the ED for hypercalcemia. He had outpatient labs done by oncology and was advised to go to the ED. on admission his calcium was 14 and he had 2 rounds of calcitonin and Zometa which has brought his calcium down to 7.9 now. However his magnesium was persistently low therefore patient was restarted on. Amiloride 5mg daily and magnesium oxide 800 twice a day . Now magnesium is 1.4 and he will be given 6 g of magnesium today and repeat check in the morning. to On admission he had a a DEBORAH which has resolved. He was aggressively hydrated and sodium is 129 therefore IV fluids will be stopped and 1 dose of Lasix will be given.. Repeat CBC CMP and magnesium daily. patient was complaining of pain and he will be started on his home regimen. Patient has also history of hypertension dyslipidemia and COPD and home medications will be restarted and patient will reassess on daily basis. Oncology feels that patient has poor prognosis due to rapid progression of disease and also due to her from just anemia of malignancy. From oncology perspective the patient can be discharged. Palliative care consulted And now patient is DNR/ DNI. Overall he seems stable he does not need any oxygen and hemodynamically he is stable. 03/15 patient is very frustrated from not being able to be discharged to home. However this morning I saw that he has developed a low-grade temperature and considering his overall health I will order chest x-ray and UA to rule out any growing infection. His magnesium is is still 1.5 despite we are giving 6 g of magnesium daily in addition to oral 800 mg twice a day. His sodium is noted low and considering he has lung cancer I would expect fluid restriction might help but I remember that when he was admitted we hydrated him and that corrected his sodium so I will give her a trial of IV fluid and have started IV fluids now but in case if sodium goes on any further he might have to try fluid restriction. I have ordered serum and urine osmolality. Patient does not want to stay any further. I did explain to him possible risks and complications especially increased risk of mortality and morbidity due to electrolyte imbalance. He vocalized his understanding he will insist to leave AMA - Constitutional Vitals: Temp Pulse Resp BP Pulse Ox 98.6 F 114 14 105/63 96 03/15/17 10:52 03/15/17 10:52 03/15/17 10:52 03/15/17 10:52 03/15/17 10:52 General appearance: Present: cachectic, A&O X 3, pleasant, no acute distress, underweight, answers questions appropriately - Head Head exam: Present: atraumatic, normocephalic - Eye Eye exam: Present: PERRL, conjuntiva pink, sclera anicteric Pupils: Present: PERRL - Neck Neck exam general surgery: Present: supple, trachea midline. Absent: lymphadenopathy - Respiratory Respiratory exam: Present: CTAB. Absent: accessory muscle use, rales, rhonchi, wheezes - Cardiovascular Cardiovascular exam: Present: RRR, +S1, +S2. Absent: diastolic murmur, gallop, rubs, systolic murmur - GI/Abdominal GI/Abdominal exam: Present: normal bowel sounds, soft, no peritoneal signs. Absent: distended, tenderness - Extremities Exam Extremities exam: Present: warm, radial pulses palpable and symmetrical. Absent : calf tenderness, cyanotic, pedal edema - Neurological Exam Neurological exam: Present: CN II-XII intact, oriented X3, no focal deficits. Absent: pronater drift, facial droop, speech deficit - Skin Skin exam: Present: dry, intact Internal Medicine: Result - Labs CBC & Chem 7: 03/14/17 03:30 03/15/17 03:25 Labs: BMP 03/15/17 03:25 Sodium 126 L Potassium 4.6 H Chloride 96 L Carbon Dioxide 23 BUN 15 Creatinine 0.70 L Glucose 108 H Calcium 7.4 L Liver Function 03/15/17 Range/Units 03:25 Total Bilirubin 0.6 (0.2-1.2) mg/dL AST 53 H (5-34) Units/L ALT 12 (0-55) Units/L Alkaline Phosphatase 90 (38-126) Units/L Albumin 2.1 L (3.5-5.0) g/dL - VTE Documentation of Mechanical Device: Intermittent pneumatic compression device Consult Discharge Plan - Plan Referrals: Evan Rizo MD [Primary Care Provider] - 03/18/17 1:15 pm Prescriptions: Morphine Sulfate SR (12 HR) [MS Contin] 1 tab PO Q8HR #30 tab Dexamethasone [Decadron] 4 mg PO BID #10 tab Morphine Immed Rel [Morphine Sulfate] 15 mg PO Q2H PRN #90 tab PRN Reason: pain or sob
[2017-03-15] MEDS: Magnesium Sulfate 2 GM in D5% in Water 100 ML IVPB SCH ×3 (13:32→16:04)
[2017-03-15 14:48] VITALS: BP 101/65
[2017-03-15 15:38] LABS: Bilirubin,Urine Negative (Negative); Blood,Urine Negative (Negative); Clarity,Urine Clear (Clear); Color,Urine Yellow (Yellow); Glucose,Urine (UA) Normal (Normal); Ketones,Urine Negative (Negative); Leukocyte Esterase,Urine Negative (Negative); Nitrite,Urine Negative (Negative); Protein,Urine 30 mg/dL (Neg-Trace)
[2017-03-15 15:39] LABS: Bacteria,Urine None Seen per hpf (None-Few); Hyaline Casts,Urine None Seen per lpf (None-Few); RBC,Urine 0-3 per hpf (0-3); Squamous Epithelial Cell,Urine Many per lpf (None-Few); WBC,Urine 0-3 per hpf (0-3)
--- NOTE | 2017-03-15 18:43 | Discharge Summary ---
Date of Encounter: 03/15/17 Time of Encounter: 18:42 - Discharge Diagnosis (1) Hypercalcemia of malignancy Priority: Primary Status: Acute (2) DEBORAH (acute kidney injury) Priority: Secondary Status: Acute (3) Small cell carcinoma of right lung Priority: Secondary Status: Acute (4) Thrombocytopenia Priority: Secondary Status: Chronic (5) Coordination of complex care Priority: Secondary Status: Acute (6) COPD (chronic obstructive pulmonary disease) Priority: Secondary Status: Chronic Qualifiers: COPD type: unspecified COPD Qualified Code(s): J44.9 - Chronic obstructive pulmonary disease, unspecified (7) Hypomagnesemia Priority: Secondary Status: Acute (8) Hyponatremia Priority: Secondary Status: Acute - Discharge Medications Prescriptions: Morphine Sulfate SR (12 HR) [MS Contin] 1 tab PO Q8HR #30 tab Dexamethasone [Decadron] 4 mg PO BID #10 tab Morphine Immed Rel [Morphine Sulfate] 15 mg PO Q2H PRN #90 tab PRN Reason: pain or sob Home Medications: LORazepam [Ativan] 1 mg PO Q6H PRN #60 tablet 11/12/16 [Rx] Lidocaine/Prilocaine [Emla] 1 appl TP AD #30 gm 11/12/16 [Rx] Magic Mouthwash [Magic Mouthwash BLM] 10 ml PO QID PRN #240 ml 11/12/16 [Rx] Omeprazole [PriLOSEC] 20 mg PO DAILY #90 cap 11/12/16 [Rx] Ondansetron [Zofran] 8 mg PO Q8HR PRN #90 tablet 11/12/16 [Rx] Prochlorperazine Maleate [Compazine] 10 mg PO Q6HR PRN #90 tablet 11/12/16 [Rx] Aspirin [Aspirin] 81 mg PO DAILY 11/19/16 [History] Isosorbide DInitrate [Isosorbide Dinitrate] 30 mg PO DAILY 11/19/16 [History] Docusate Sodium [Colace] 100 mg PO BID #60 capsule 12/01/16 [Rx] Sennosides [Senna] 8.6 mg PO DAILY #60 tablet 12/01/16 [Rx] Morphine Sulfate [Arymo ER] 15 mg PO TID #90 tab.po.er 02/09/17 [Rx] Gabapentin [Neurontin] 300 mg PO HS 03/10/17 [History] Dexamethasone [Decadron] 4 mg PO BID #10 tab 03/12/17 [Rx] Morphine Immed Rel [Morphine Sulfate] 15 mg PO Q2H PRN #90 tab 03/12/17 [Rx] Morphine Immed Rel [Morphine Sulfate] 15 mg PO Q2H PRN #90 tab 03/12/17 [Rx] Morphine Sulfate SR (12 HR) [MS Contin] 1 tab PO Q8HR #30 tab 03/12/17 [Rx] Allergies/Adverse Reactions: 3 Allergy/AdvReac Type Severity Reaction Status Date / Time No Known Allergies Allergy Verified 01/15/17 11:08 Date of admission: 03/10/17 23:36 Primary care physician: Evan Rizo MD Consults: 03/11/17 12:42 Consult to Palliative Care [CONS] Routine Comment: Consulting Provider: Palliative Care Kayla Reason for Consult: SCLC - Poor prognosis Time Notified: 12:42 Call Completed: No Discharging clinician: Maria De Jesus Salmeron Anticipated date of discharge: 03/15/17 - Patient Status Disposition: Left Against Medical Advice Condition: Fair - Discharge Instructions Follow Up With: Evan Rizo MD [Primary Care Provider] - 03/18/17 1:15 pm Hospital course: Mr. Ortiz is a 62 year old male with past medical history hyperlipidemia, hypertension, anxiety and small cell lung cancer undergoing chemotherapy. Patient presents to the ED for hypercalcemia. He had outpatient labs done by oncology and was advised to go to the ED. on admission his calcium was 14 and he had 2 rounds of calcitonin and Zometa which has brought his calcium down to 7.9 now. However his magnesium was persistently low therefore patient was restarted on. Amiloride 5mg daily and magnesium oxide 800 twice a day . Now magnesium is 1.4 and he will be given 6 g of magnesium today and repeat check in the morning. to On admission he had a a DEBORAH which has resolved. He was aggressively hydrated and sodium is 129 therefore IV fluids will be stopped and 1 dose of Lasix will be given.. Repeat CBC CMP and magnesium daily. patient was complaining of pain and he will be started on his home regimen. Patient has also history of hypertension dyslipidemia and COPD and home medications will be restarted and patient will reassess on daily basis. Oncology feels that patient has poor prognosis due to rapid progression of disease and also due to her from just anemia of malignancy. From oncology perspective the patient can be discharged. Palliative care consulted And now patient is DNR/ DNI. Overall he seems stable he does not need any oxygen and hemodynamically he is stable. 03/15 patient is very frustrated from not being able to be discharged to home. However this morning I saw that he has developed a low-grade temperature and considering his overall health I will order chest x-ray and UA to rule out any growing infection. His magnesium is is still 1.5 despite we are giving 6 g of magnesium daily in addition to oral 800 mg twice a day. His sodium is noted low and considering he has lung cancer I would expect fluid restriction might help but I remember that when he was admitted we hydrated him and that corrected his sodium so I will give her a trial of IV fluid and have started IV fluids now but in case if sodium goes on any further he might have to try fluid restriction. I have ordered serum and urine osmolality. Patient does not want to stay any further. I did explain to him possible risks and complications especially increased risk of mortality and morbidity due to electrolyte imbalance. He vocalized his understanding but insist to leave AMA it please see my today's progress note for examination and details - Time Spent with Patient Total time spent providing and/or coordinating discharge services: - Constitutional Vitals: Temp Pulse Resp BP Pulse Ox 98.9 F 99 14 101/65 95 03/15/17 14:48 03/15/17 14:48 03/15/17 14:48 03/15/17 14:48 03/15/17 14:48 General appearance: Present: cachectic, A&O X 3, pleasant, no acute distress, underweight, answers questions appropriately - VTE Documentation of Mechanical Device: Intermittent pneumatic compression device
== END 2017-03-15 17:35 | disposition left against medical advice (07) | DRG 181 ==
LOC: EMEROO 20:28 → 2NNU 20:28 → 3ANU 03-12 17:45
PROVIDERS: ADMIT Pediatrics; ATTEND Internal Medicine

== ENCOUNTER 2017-04-02 15:06 | Inpatient (IN) ==
[2017-04-02] MEDS ORDERED: Ondansetron 4 MG/2 ML VIAL IVP PRN (20:27)
[2017-04-02] MEDS ORDERED: Naloxone 0.4 MG/ML INJ IVP PRN (20:27)
[2017-04-02] MEDS: Pantoprazole 40 MG in 0.9 % Sodium Chloride Mini Bag 100 ML IVC SCH (21:35)
[2017-04-02 22:25] LABS: Mean Corpuscular Hemoglobin 29.9 pg (28.0-33.3); Mean Corpuscular Volume 90.6 fL (83.0-100.0); Nucleated Red Blood Cells 3.5 /100 WBC (0); Red Blood Count 1.27 M/mcL (4.19-5.50); Red Cell Distribution Width 16.3 % (11.5-14.5)
[2017-04-02 22:29] LABS: Hemoglobin 3.8 g/dL (12.9-16.9); INR 1.2; Prothrombin Time 13.5 Seconds (9.4-12.1)
[2017-04-02 22:30] LABS: Platelet Count 16 K/mcL (140-400)
[2017-04-02 22:33] LABS: Activated Partial Thrombo Time 20.7 Seconds (26.0-36.0)
[2017-04-02 22:36] LABS: Alanine Aminotransferase 63 Units/L (0-55); Albumin 1.7 g/dL (3.5-5.0); Albumin/Globulin Ratio 0.5 (1.1-2.2); Alkaline Phosphatase 131 Units/L (38-126); Aspartate Amino Transferase 102 Units/L (5-34); BUN/Creatinine Ratio 46 (6-26); Bilirubin,Direct 0.1 mg/dL (0.0-0.5); Bilirubin,Indirect 0.2 mg/dL (0.0-1.2); Bilirubin,Total 0.3 mg/dL (0.2-1.2); Blood Urea Nitrogen 41 mg/dL (8-26); Carbon Dioxide 21 mEq/L (19-29); Chloride 100 mEq/L (98-109); Globulin 3.4 g/dL (2.4-3.5); Glucose 134 mg/dL (70-99); Magnesium 1.2 mg/dL (1.6-2.6); Osmolality,Calculated 288 (280-300); Potassium 4.1 mEq/L (3.5-4.5); Sodium 133 mEq/L (136-145); Total Protein 5.1 g/dL (6.0-8.3); eGFR For African Americans > 60 (> 60); eGFR For Non-African Americans > 60 (> 60)
[2017-04-02 23:13] LABS: Lymphocytes # 1.7 K/mcL (0.6-4.6); Monocytes # 0.2 K/mcL (0.0-1.3); Neutrophils # 5.4 K/mcL (1.6-8.9)
[2017-04-02 23:14] LABS: Anisocytosis 1+ (Not Present); Platelet Estimate Marked Decrease (Normal); Polychromasia 1+ (Not Present)
[2017-04-02 23:15] LABS: Basophilic Stippling 1+ (Not Present)
[2017-04-02] MEDS: *HR* HYDROmorphone (PF) 1 MG/ML SYRINGE IVP PRN (23:18)
--- NOTE | 2017-04-02 23:43 | Internal Med History&Physical ---
Date of Encounter: 04/02/17 Time of Encounter: 19:40 Assessment and Plan (1) UGI bleed Current visit: Yes Status: Acute 1. Patient has [address] as well as functioning A-port for access. 2. Patient placed on Protonix drip. 3. Will transfuse PRBC's and platelets and monitor counts closely. 4. Patient denies fevers or signs of infection. However, given leukocytosis and GI bleed, will culture blood and cover for GI caitlyn source of infection. 5. Consult GI for endoscopy tomorrow or later once transfused and platelets are at safe levels. 6. Discussed CODE STATUS at length. Pt does not want heroic measures. He request DNR Arrest code status and is agreeable to intubation only if it is to protect his airway in the event of an acute UGI bleed and hematemesis. 7. Will give stress dose steroids given that he is on Decadron chronically. 65 minutes critical care time spent with patient, reviewing labs and records, and treating him thus far. (2) Acute blood loss anemia Current visit: Yes Status: Acute 1. PRBC and platelet transfusion as above. 2. Monitor counts closely. 3. Source likely UGI. (3) Small cell carcinoma of right lung Current visit: No Status: Acute 1. Per oncology. 2. Patient has not completed his last cycle of chemotherapy. 3. He may benefit from palliative care consult in the near future if his condition continues to deteriorate. (4) Thrombocytopenia Current visit: No Status: Chronic 1. Will transfuse to keep platelets above 50,00 as able. 2. Patient with acute blood loss and will need platelets as above. (5) DVT prophylaxis Current visit: Yes Status: Acute 1. EPCD's. Internal Medicine - H&P: HPI Chief complaint: anemia; melena; trasnfer from [place] Admitted From: Hospital to Hospital Transfer Plans for Post Hospital Care: Home History of present illness: Mr. Ortiz is a 62 year old male who was transferred here from [facility] with abnormal labs and complaints of melena. He was noted to have a hemoglobin of 3.5 and a platelet count of 22,000. He was transferred to our ICU for ongoing care management. Upon my assessment of the patient, he is not in any distress, but he is borderline hypotensive and borderline tachycardic. He reports a 4-5 day history of melena, epigastric pain, and worsening appetite loss. He's had chronic appetite loss, weight loss, and generalized weakness from his lung cancer and ongoing chemotherapy. His symptoms are profound now, and he has had some shortness of breath and lightheadedness. He denies any hemoptysis, hematemesis, or hematochezia. He does confirm melena, however. He denies any fevers. He denies any prior history of gastric or duodenal ulcers. He takes a daily aspirin but he denies NSAID abuse. I discussed CODE STATUS with him, and he wishes to be DNR arrest, but he is agreeable to intubation if necessary in the event he develops a significant GI bleed and needs airway protection. He does not wish to receive chest compressions or defibrillation. He is agreeable to upper and lower endoscopy if necessary. His brother/POA was present and agrees with his decision and plan of care discussed. Past Med Surg Social Fam HX - Past Medical History Attestation: Yes The following information was validated with the patient. Source: patient, old records reviewed, obtained from family Medical history: cancer (lung cancer), hyperlipidemia, hypertension Psychiatric history: anxiety - Past Surgical History Surgical History: other (Aport placement; tosillectomy) - Social History Smoking Status: Current every day smoker Smokeless Tobacco Status: No Alcohol use: none Drug use: none Current living situation: Home Activity Level: Independent ambulation Recent Out of Country Travel Within the Last 8 Weeks: No - Family History Mother Age: 85 Living Status: Hx Family Cancer: Yes (Breast cancer) Father Age: 60 Living Status: Hx Family Cardiac Disorders: Yes Internal Medicine - H&P: Meds LORazepam [Ativan] 1 mg PO Q6H PRN #60 tablet 11/12/16 [Rx] Lidocaine/Prilocaine [Emla] 1 appl TP AD #30 gm 11/12/16 [Rx] Magic Mouthwash [Magic Mouthwash BLM] 10 ml PO QID PRN #240 ml 11/12/16 [Rx] Omeprazole [PriLOSEC] 20 mg PO DAILY #90 cap 11/12/16 [Rx] Ondansetron [Zofran] 8 mg PO Q8HR PRN #90 tablet 11/12/16 [Rx] Prochlorperazine Maleate [Compazine] 10 mg PO Q6HR PRN #90 tablet 11/12/16 [Rx] Aspirin [Aspirin] 81 mg PO DAILY 11/19/16 [History] Isosorbide DInitrate [Isosorbide Dinitrate] 30 mg PO DAILY 11/19/16 [History] Docusate Sodium [Colace] 100 mg PO BID #60 capsule 12/01/16 [Rx] Sennosides [Senna] 8.6 mg PO DAILY #60 tablet 12/01/16 [Rx] Gabapentin [Neurontin] 300 mg PO HS 03/10/17 [History] Dexamethasone [Decadron] 0.5 tab PO BID #30 tab 03/22/17 [Rx] Oxycodone HCl 1 - 2 tab PO Q3H PRN #120 tablet 03/29/17 [Rx] 3 Allergy/AdvReac Type Severity Reaction Status Date / Time acetaminophen [From Vicodin] Allergy Hives Verified 03/22/17 13:18 hydrocodone [From Vicodin] Allergy Hives Verified 03/22/17 13:18 - Constitutional Constitutional: fatigue, malaise, weakness, weight loss, other (appetite loss), no chills, no fever(s), no night sweats - EENT Eyes: no blurry vision, no change in vision Ears: no ear pain, no tinnitus Nose, mouth and throat: no nasal congestion, no sinus pressure, no sore throat - Cardiovascular Cardiovascular ROS IM: dyspnea, dyspnea on exertion, edema, no chest pain, no orthopnea, no palpitations - Respiratory Respiratory: dyspnea, dyspnea on exertion, no cough, no hemoptysis, no wheezing , no chest congestion, no excessive phlegm production, no change in phlegm color - Gastrointestinal Gastrointestinal: abdominal pain (epigastric), early satiety, heartburn, melena , no diarrhea, no hematemesis, no hematochezia, no nausea, no odynophagia, no vomiting - Genitourinary Genitourinary ROS male: no dysuria, no flank pain, no hematuria - Musculoskeletal Musculoskeletal ROS IM: arthralgias, back pain - Integumentary Integumentary IM: no rash, no jaundice - Neurological Neurological ROS: no disequilibrium, no dizziness, no focal weakness, no frequent falls - Psychiatric Psychiatric: no anxiety, no depression - Endocrine Endocrine IM: no polydipsia, no polyuria - Hematologic/Lymphatic Hematologic/Lymphatic: easy bruising - Allergic/Immunologic Allergic/Immunologic: no wheezing, no GI upset with certain foods - Constitutional Vitals: Temp Pulse Resp BP Pulse Ox 98.6 F 87 14 86/50 100 04/02/17 23:18 04/02/17 23:25 04/02/17 23:18 04/02/17 23:18 04/02/17 23:18 General appearance: Present: cachectic, cooperative, A&O X 3, pleasant, no acute distress, answers questions appropriately - Head Head exam: Present: atraumatic, normal inspection - Expanded Head Exam Head exam expanded: Absent: abrasion, contusion, general tenderness - Eye Eye exam: Present: EOMI, PERRL. Absent: scleral icterus Pupils: Present: normal accommodation - ENT ENT exam: Present: mucous membranes dry, normal exam - Neck Neck exam general surgery: Present: full ROM, supple. Absent: lymphadenopathy, tenderness - Respiratory Respiratory exam: Present: CTAB. Absent: chest wall tenderness, rales, respiratory distress, rhonchi, wheezes - Cardiovascular Cardiovascular exam: Present: distant heart sounds, RRR, +S1, +S2. Absent: diastolic murmur, systolic murmur - GI/Abdominal GI/Abdominal exam: Present: normal bowel sounds, soft, tenderness (epigastric area), no peritoneal signs. Absent: guarding, hepatomegaly, mass, rebound, splenomegaly - Extremities Exam Extremities exam: Present: full ROM, pedal edema (1-2+), warm, radial pulses palpable and symmetrical. Absent: calf tenderness, joint swelling - Back Exam Back exam: Absent: CVA tenderness (L), CVA tenderness (R) - Neurological Exam Neurological exam: Present: alert, CN II-XII intact, oriented X3, no focal deficits - Psychiatric Psychiatric exam: Present: normal affect, normal mood - Skin Skin exam: Present: dry, warm. Absent: rash Internal Med - H&P Results - Labs CBC & Chem 7: 04/02/17 22:06 04/02/17 22:06 Labs: Short CBC 04/02/17 Range/Units 22:06 WBC 7.9 D (4.3-11.1) K/mcL Hgb 3.8 L* (12.9-16.9) g/dL Hct 11.5 L* (37.5-50.1) % Plt Count 16 L* (140-400) K/mcL Neutrophils # 5.4 (1.6-8.9) K/mcL BMP 04/02/17 22:06 Sodium 133 L Potassium 4.1 Chloride 100 Carbon Dioxide 21 BUN 41 H Creatinine 0.89 Glucose 134 H Calcium 8.0 L Liver Function 04/02/17 Range/Units 22:06 Total Bilirubin 0.3 (0.2-1.2) mg/dL Direct Bilirubin 0.1 (0.0-0.5) mg/dL AST 102 H (5-34) Units/L ALT 63 H (0-55) Units/L Alkaline Phosphatase 131 H (38-126) Units/L Albumin 1.7 L (3.5-5.0) g/dL
[2017-04-02] MEDS: MetroNIDAZOLE 500 MG/100 ML 500 MG/100 ML BAG IVPB SCH (23:49)
[2017-04-03] MEDS: *HR* OxyCODONE Immed Rel 15 MG TABLET PO PRN ×4 (00:06→20:22)
[2017-04-03] MEDS: Hydrocortisone Sodium Succ 100 MG/2 ML VIAL IVP SCH ×3 (00:06→12:30)
[2017-04-03 01:35] LABS: Hematocrit 11.5 % (37.5-50.1)
[2017-04-03] MEDS: Pantoprazole 40 MG in 0.9 % Sodium Chloride Mini Bag 100 ML IVC SCH ×5 (02:09→22:24)
[2017-04-03] MEDS ORDERED: Furosemide 20 MG/2 ML VIAL IVP ONE (04:30)
[2017-04-03] MEDS: *HR* HYDROmorphone (PF) 1 MG/ML SYRINGE IVP PRN ×4 (05:20→22:24)
[2017-04-03] MEDS ORDERED: Furosemide 20 MG/2 ML VIAL IVP PRN (05:27)
[2017-04-03] MEDS: MetroNIDAZOLE 500 MG/100 ML 500 MG/100 ML BAG IVPB SCH ×3 (07:40→23:14)
[2017-04-03] MEDS ORDERED: 0.9 % Sodium Chloride 250 ML ONE (09:29)
[2017-04-03] MEDS ORDERED: Magic Mouthwash 10 ML UD Cup PO PRN (13:15)
[2017-04-03] MEDS ORDERED: *HR* LORazepam 1 MG TABLET PO PRN (13:15)
--- NOTE | 2017-04-03 13:23 | Internal Med Progress Note ---
Date of Encounter: 04/03/17 Time of Encounter: 11:00 - Assessment and plan (1) Acute blood loss anemia Current Visit: Yes Status: Acute Assessment and plan: Patient with acute blood loss anemia related to possible upper GI bleed and melena. Discussed with. Given the patient's severely low platelet counts, nontender and he recommended for urgent upper GI endoscopy at this time. Recommended to stabilize the patient and treat anemia and thrombocytopenia. Patient has so far received 4 units of packed red blood cells and 2 units of platelets. We will monitor blood counts closely. Continue IV PPI. High risk for complications (2) UGI bleed Current Visit: Yes Status: Acute Assessment and plan: With melena. On IV PPI. Seems to be improving. No new episodes of hematemesis or melena. We will continue to monitor blood counts. High risk for complications from upper GI endoscopy due to low platelets. As such, we will monitor blood counts closely and treat conservatively for now. (3) Small cell carcinoma of right lung Current Visit: Yes Status: Acute Assessment and plan: Chronic. Follow up with oncology. Patient is currently saturating well on room air. (4) Thrombocytopenia Current Visit: Yes Status: Chronic Assessment and plan: Acute on chronic from cytopenia. Continue to monitor platelets. Patient received 2 packed platelets. No active bleeding at this time. (5) DVT prophylaxis Current Visit: Yes Status: Acute Assessment and plan: With SCDs alone - Subjective Interval history: Patient feels better but remains tired. No melena or hematemesis reported today. No abdominal pain. Currently not having any dizziness or lightheadedness. No palpitations. - Constitutional Vitals: Temp Pulse Resp BP Pulse Ox 98.6 F 73 14 97/60 96 04/03/17 12:00 04/03/17 12:00 04/03/17 12:00 04/03/17 12:00 04/03/17 12:00 General appearance: Present: cachectic, cooperative, A&O X 3, pleasant, no acute distress, underweight, answers questions appropriately - Neck Neck exam general surgery: Present: supple, trachea midline. Absent: lymphadenopathy - Respiratory Respiratory exam: Present: CTAB. Absent: accessory muscle use, rales, rhonchi, wheezes - Cardiovascular Cardiovascular exam: Present: RRR, +S1, +S2. Absent: diastolic murmur, gallop, rubs, systolic murmur - GI/Abdominal GI/Abdominal exam: Present: normal bowel sounds, soft, no peritoneal signs. Absent: distended, tenderness - Extremities Exam Extremities exam: Present: warm, radial pulses palpable and symmetrical. Absent : calf tenderness, cyanotic, pedal edema - Skin Skin exam: Present: dry, intact, pallor Internal Medicine: Result - Labs CBC & Chem 7: 04/02/17 22:06 04/02/17 22:06 Labs: Short CBC 04/02/17 Range/Units 22:06 WBC 7.9 D (4.3-11.1) K/mcL Hgb 3.8 L* (12.9-16.9) g/dL Hct 11.5 L* (37.5-50.1) % Plt Count 16 L* (140-400) K/mcL Neutrophils # 5.4 (1.6-8.9) K/mcL BMP 04/02/17 22:06 Sodium 133 L Potassium 4.1 Chloride 100 Carbon Dioxide 21 BUN 41 H Creatinine 0.89 Glucose 134 H Calcium 8.0 L Liver Function 04/02/17 Range/Units 22:06 Total Bilirubin 0.3 (0.2-1.2) mg/dL Direct Bilirubin 0.1 (0.0-0.5) mg/dL AST 102 H (5-34) Units/L ALT 63 H (0-55) Units/L Alkaline Phosphatase 131 H (38-126) Units/L Albumin 1.7 L (3.5-5.0) g/dL - ABG Interpretation ABG results: PT/INR, D-dimer PT 13.5 Seconds (9.4-12.1) H 04/02/17 22:06 Consult Discharge Plan - Plan Referrals: Evan Rizo MD [Primary Care Provider] -
[2017-04-03 13:46] LABS: Hematocrit 24.7 % (37.5-50.1); Hemoglobin 8.4 g/dL (12.9-16.9); Mean Corpuscular Hemoglobin 29.6 pg (28.0-33.3); Mean Platelet Volume 10.5 fL (9.4-12.4); Nucleated Red Blood Cells 5.6 /100 WBC (0); Red Blood Count 2.84 M/mcL (4.19-5.50); Red Cell Distribution Width 14.6 % (11.5-14.5)
[2017-04-03 13:47] LABS: Platelet Count 40 K/mcL (140-400)
[2017-04-03 13:52] LABS: INR 1.1; Prothrombin Time 12.4 Seconds (9.4-12.1)
[2017-04-03 13:57] LABS: Alanine Aminotransferase 59 Units/L (0-55); Albumin/Globulin Ratio 0.6 (1.1-2.2); Alkaline Phosphatase 138 Units/L (38-126); Aspartate Amino Transferase 83 Units/L (5-34); BUN/Creatinine Ratio 41 (6-26); Bilirubin,Total 0.5 mg/dL (0.2-1.2); Blood Urea Nitrogen 31 mg/dL (8-26); Calcium 7.7 mg/dL (8.6-10.8); Carbon Dioxide 25 mEq/L (19-29); Chloride 98 mEq/L (98-109); Globulin 3.5 g/dL (2.4-3.5); Glucose 100 mg/dL (70-99); Osmolality,Calculated 287 (280-300); Potassium 3.1 mEq/L (3.5-4.5); Sodium 135 mEq/L (136-145); Total Protein 5.5 g/dL (6.0-8.3); eGFR For African Americans > 60 (> 60); eGFR For Non-African Americans > 60 (> 60)
[2017-04-03] MEDS ORDERED: Magnesium Sulfate 2 GM in D5% in Water 100 ML IVPB ONE (14:16)
[2017-04-03 14:25] LABS: Eosinophils # 0.2 K/mcL (0.0-0.6); Lymphocytes # 3.1 K/mcL (0.6-4.6); Monocytes # 0.5 K/mcL (0.0-1.3)
[2017-04-03 14:26] LABS: Anisocytosis 1+ (Not Present); Platelet Estimate Marked Decrease (Normal); Polychromasia 1+ (Not Present)
[2017-04-03] MEDS: Potassium Chloride 40 MEQ/200 ML BAG IVPB PRN (20:59)
[2017-04-03] MEDS ORDERED: Gabapentin 300 MG CAPSULE PO SCH (21:00)
[2017-04-04] MEDS: Pantoprazole 40 MG in 0.9 % Sodium Chloride Mini Bag 100 ML IVC SCH (03:14)
[2017-04-04 04:57] LABS: BUN/Creatinine Ratio 35 (6-26); Blood Urea Nitrogen 25 mg/dL (8-26); Calcium 7.6 mg/dL (8.6-10.8); Carbon Dioxide 25 mEq/L (19-29); Chloride 102 mEq/L (98-109); Glucose 92 mg/dL (70-99); Osmolality,Calculated 282 (280-300); Potassium 3.3 mEq/L (3.5-4.5); Sodium 134 mEq/L (136-145); eGFR For African Americans > 60 (> 60); eGFR For Non-African Americans > 60 (> 60)
[2017-04-04 05:26] LABS: Hematocrit 26.8 % (37.5-50.1); Red Cell Distribution Width 15.2 % (11.5-14.5)
[2017-04-04 05:28] LABS: Hemoglobin 8.8 g/dL (12.9-16.9); Lymphocytes # 2.1 K/mcL (0.6-4.6); Mean Corpuscular HGB Conc 32.8 g/dL (31.6-35.5); Mean Corpuscular Hemoglobin 28.8 pg (28.0-33.3); Mean Corpuscular Volume 87.6 fL (83.0-100.0); Mean Platelet Volume 11.3 fL (9.4-12.4); Nucleated Red Blood Cells 6.8 /100 WBC (0); Red Blood Count 3.06 M/mcL (4.19-5.50)
[2017-04-04] MEDS ORDERED: Potassium Chloride 40 MEQ/200 ML BAG IVPB PRN ×3 (05:34→07:39)
[2017-04-04 05:44] LABS: Platelet Count 30 K/mcL (140-400)
[2017-04-04] MEDS: *HR* OxyCODONE Immed Rel 15 MG TABLET PO PRN ×4 (06:21→18:28)
[2017-04-04 06:33] LABS: Eosinophils # 0.2 K/mcL (0.0-0.6); Monocytes # 1.2 K/mcL (0.0-1.3); Neutrophils # 5.2 K/mcL (1.6-8.9)
[2017-04-04 06:34] LABS: Platelet Estimate Marked Decrease (Normal)
[2017-04-04] MEDS: Potassium Chloride 40 MEQ/200 ML BAG IVPB PRN (06:34)
[2017-04-04 06:35] LABS: Anisocytosis 1+ (Not Present); Polychromasia 1+ (Not Present)
[2017-04-04] MEDS ORDERED: *HR* LORazepam 1 MG TABLET PO PRN (07:39)
[2017-04-04] MEDS ORDERED: Pantoprazole 40 MG in 0.9 % Sodium Chloride Mini Bag 100 ML IVC SCH (07:39)
[2017-04-04] MEDS ORDERED: Magic Mouthwash 10 ML UD Cup PO PRN (07:39)
[2017-04-04] MEDS ORDERED: Ondansetron 4 MG/2 ML VIAL IVP PRN (07:39)
[2017-04-04] MEDS ORDERED: Furosemide 20 MG/2 ML VIAL IVP PRN (07:39)
[2017-04-04] MEDS ORDERED: Naloxone 0.4 MG/ML INJ IVP PRN (07:39)
[2017-04-04] MEDS ORDERED: MetroNIDAZOLE 500 MG/100 ML 500 MG/100 ML BAG IVPB SCH (08:00)
[2017-04-04] MEDS ORDERED: 0.9 % Sodium Chloride 250 ML ONE (08:09)
[2017-04-04] MEDS ORDERED: *HR* Midazolam HCl 5 MG/5 ML VIAL IVP ONE (11:56)
[2017-04-04] MEDS ORDERED: *HR* FentaNYL (PF) 100 MCG/2 ML VIAL ONE (11:57)
[2017-04-04] MEDS ORDERED: Tetracaine/Benzocaine/Butamben 200MG/SPRAY (100SPY/BOT) MM ONE (12:00)
--- NOTE | 2017-04-04 12:00 | Pre-Sedation Evaluation ---
Pre-sedation evaluation - Pre-sedation checklist Procedure: port insertion Recent Vitals: Last Vital Signs Temp 97.9 F 04/04/17 11:37 Pulse 84 04/04/17 11:37 Resp 16 04/04/17 11:37 BP 123/78 04/04/17 11:37 Pulse Ox 96 04/04/17 11:37 H&P (including ROS) documented in medical record: Yes Previous reaction to sedatives/anesthetics: No Dietary Status: NPO after Midnight Dentition: poor dentition ASA Classification *see protocol: CLASS III-Severe systemic disease Plan of Care: Pt appropriate candidate for procedure/moderate/conscious sedation , Risks/benefits of procedure/sedation discussed w/ patient/family
[2017-04-04] MEDS: *HR* Midazolam HCl 5 MG/5 ML VIAL IVP PRN ×2 (12:12→12:18)
[2017-04-04] MEDS: *HR* FentaNYL (PF) 100 MCG/2 ML VIAL IVP PRN ×2 (12:13→12:18)
--- NOTE | 2017-04-04 14:09 | Internal Med Progress Note ---
Date of Encounter: 04/04/17 Time of Encounter: 11:45 - Assessment and plan (1) Acute blood loss anemia Current Visit: Yes Status: Acute Assessment and plan: From possible GI bleed. Blood counts have remained stable since yesterday. We will continue to monitor. Plan for upper GI endoscopy today. (2) UGI bleed Current Visit: Yes Status: Acute Assessment and plan: On IV PPI. Upper GI endoscopy planned for later today. (3) Small cell carcinoma of right lung Current Visit: Yes Status: Acute Assessment and plan: Follow-up outpatient with oncology (4) Thrombocytopenia Current Visit: Yes Status: Chronic Assessment and plan: Improved posttransfusion. Patient received 1 unit packed platelets due to planned procedure later today. (5) DVT prophylaxis Current Visit: Yes Status: Acute Assessment and plan: With SCDs - Subjective Interval history: Patient is sitting up in bed. Comfortable. No new episodes of hematemesis or melena. No abdominal pain. - Constitutional Vitals: Temp Pulse Resp BP Pulse Ox 97.7 F 83 16 120/71 96 04/04/17 13:15 04/04/17 13:15 04/04/17 13:15 04/04/17 13:15 04/04/17 13:15 General appearance: Present: cachectic, cooperative, A&O X 3, pleasant, no acute distress, underweight, answers questions appropriately - Neck Neck exam general surgery: Present: supple, trachea midline. Absent: lymphadenopathy - Respiratory Respiratory exam: Present: CTAB. Absent: accessory muscle use, rales, rhonchi, wheezes - Cardiovascular Cardiovascular exam: Present: RRR, +S1, +S2. Absent: diastolic murmur, gallop, rubs, systolic murmur - GI/Abdominal GI/Abdominal exam: Present: normal bowel sounds, soft, no peritoneal signs. Absent: distended, tenderness - Extremities Exam Extremities exam: Present: warm, radial pulses palpable and symmetrical. Absent : calf tenderness, cyanotic, pedal edema - Skin Skin exam: Present: dry, intact, pallor Internal Medicine: Result - Labs CBC & Chem 7: 04/04/17 04:39 04/04/17 04:39 Labs: Short CBC 04/03/17 04/04/17 Range/Units 13:30 04:39 WBC 8.6 (4.3-11.1) K/mcL Hgb 8.8 L (12.9-16.9) g/dL Hct 26.8 L (37.5-50.1) % Plt Count 30 L* (140-400) K/mcL Neutrophils # 5.0 5.2 (1.6-8.9) K/mcL BMP 04/04/17 04:39 Sodium 134 L Potassium 3.3 L Chloride 102 Carbon Dioxide 25 BUN 25 Creatinine 0.71 L Glucose 92 Calcium 7.6 L - ABG Interpretation ABG results: PT/INR, D-dimer PT 12.4 Seconds (9.4-12.1) H 04/03/17 13:30 - VTE Documentation of Mechanical Device: Intermittent pneumatic compression device Consult Discharge Plan - Plan Referrals: Evan Rizo MD [Primary Care Provider] -
[2017-04-04] MEDS: Isosorbide MONOnitrate (24 HR) 30 MG TAB.ER.24H PO SCH (15:49)
[2017-04-04] MEDS ORDERED: Gabapentin 300 MG CAPSULE PO SCH (21:00)
[2017-04-05] MEDS: *HR* OxyCODONE Immed Rel 15 MG TABLET PO PRN ×2 (00:15→09:57)
[2017-04-05 04:30] LABS: Hematocrit 27.9 % (37.5-50.1); Hemoglobin 9.4 g/dL (12.9-16.9); Mean Corpuscular HGB Conc 33.7 g/dL (31.6-35.5); Mean Corpuscular Hemoglobin 29.3 pg (28.0-33.3); Mean Corpuscular Volume 86.9 fL (83.0-100.0); Mean Platelet Volume 9.3 fL (9.4-12.4); Nucleated Red Blood Cells 4.4 /100 WBC (0); Red Blood Count 3.21 M/mcL (4.19-5.50); Red Cell Distribution Width 15.5 % (11.5-14.5)
[2017-04-05 04:34] LABS: Platelet Count 19 K/mcL (140-400)
[2017-04-05 04:43] LABS: BUN/Creatinine Ratio 23 (6-26); Blood Urea Nitrogen 15 mg/dL (8-26); Calcium 7.6 mg/dL (8.6-10.8); Carbon Dioxide 23 mEq/L (19-29); Chloride 102 mEq/L (98-109); Glucose 97 mg/dL (70-99); Osmolality,Calculated 277 (280-300); Potassium 3.8 mEq/L (3.5-4.5); Sodium 133 mEq/L (136-145); eGFR For African Americans > 60 (> 60); eGFR For Non-African Americans > 60 (> 60)
[2017-04-05 04:53] LABS: Lymphocytes # 2.2 K/mcL (0.6-4.6); Monocytes # 0.9 K/mcL (0.0-1.3); Neutrophils # 5.1 K/mcL (1.6-8.9); Platelet Estimate Decreased (Normal); Polychromasia 1+ (Not Present)
[2017-04-05 06:36] VITALS: BP 119/74
[2017-04-05] MEDS: Isosorbide MONOnitrate (24 HR) 30 MG TAB.ER.24H PO SCH (09:57)
--- NOTE | 2017-04-05 10:22 | Discharge Summary ---
Date of Encounter: 04/05/17 Time of Encounter: 09:20 - Discharge Diagnosis (1) Acute blood loss anemia Priority: Primary Status: Acute (2) UGI bleed Priority: Secondary Status: Resolved (3) Small cell carcinoma of right lung Priority: Secondary Status: Acute (4) Thrombocytopenia Priority: Secondary Status: Chronic (5) DVT prophylaxis Priority: Secondary Status: Acute (6) Severe protein-calorie malnutrition Priority: Secondary Status: Chronic Comments: Due to malignancy - Discharge Medications Home Medications: LORazepam [Ativan] 1 mg PO Q6H PRN #60 tablet 11/12/16 [Rx] Magic Mouthwash [Magic Mouthwash BLM] 10 ml PO QID PRN #240 ml 11/12/16 [Rx] Omeprazole [PriLOSEC] 20 mg PO DAILY #90 cap 11/12/16 [Rx] Ondansetron [Zofran] 8 mg PO Q8HR PRN #90 tablet 11/12/16 [Rx] Prochlorperazine Maleate [Compazine] 10 mg PO Q6HR PRN #90 tablet 11/12/16 [Rx] Aspirin 81 mg PO DAILY 11/19/16 [History] Isosorbide DInitrate [Isosorbide Dinitrate] 30 mg PO DAILY 11/19/16 [History] Docusate Sodium [Colace] 100 mg PO BID #60 capsule 12/01/16 [Rx] Sennosides [Senna] 8.6 mg PO DAILY #60 tablet 12/01/16 [Rx] Gabapentin [Neurontin] 300 mg PO HS 03/10/17 [History] Dexamethasone [Decadron] 0.5 tab PO BID #30 tab 03/22/17 [Rx] Oxycodone HCl 1 - 2 tab PO Q3H PRN #120 tablet 03/29/17 [Rx] Megestrol Acetate [Megace] 40 mg PO BID 04/03/17 [History] Allergies/Adverse Reactions: 3 Allergy/AdvReac Type Severity Reaction Status Date / Time acetaminophen [From Vicodin] Allergy Hives Verified 03/22/17 13:18 hydrocodone [From Vicodin] Allergy Hives Verified 03/22/17 13:18 Procedures/tests Complete & Pending: Procedures Performed prior 72 hours Category Date Time Status ECG 12 lead ECG [ECG] Routine Y 04/02/17 20:32 Completed Date of admission: 04/02/17 16:51 Primary care physician: Evan Rizo MD Consults: 04/02/17 17:26 Consult to Nutrition [CONS] Routine Comment: Consulting Provider: NUTRITION Reason for Dietary Consult: Other Consult to Pastoral Services [CONS] Routine Comment: Consult to Psychology Department Chair [CONS] Routine Reason for SW Consult: Receives passport. 04/03/17 07:28 Consult to Gastroenterology [CONS] Routine Consulting Provider: [facility] Kayla Reason for Consult: GI Bleed Time Notified: 07:28 Call Completed: Yes Discharging clinician: Vishnu Szymanski Anticipated date of discharge: 04/05/17 - Patient Status Disposition: Home Health Service Condition: Fair Functional capacity at discharge: independent ambulation Overall status at discharge: patient is progressing back to baseline - Ambulatory Orders Ambulatory Orders: Complete Blood Count [HEME] Time Frame: 1 Week, Facility: , Location: [facility] - Discharge Instructions Instructions: Anemia (GEN) Follow Up With: Evan Rizo MD [Primary Care Provider] - (In one week) Additional Instructions: Follow-up with oncology as scheduled - Diet and Activity Activity: increase activity as tolerated Diet: advance to your usual diet Hospital course: Mr. Ortiz is a 62 year old male with history of small cell carcinoma of the right lung who was admitted here with acute blood loss anemia with episodes of melena. On arrival, his hemoglobin level was 3.8 with platelet count of 16. Patient received multiple blood transfusions and platelet transfusions. His blood counts have improved since then. While his hemoglobin and hematocrit levels have remained stable, he does continue to have low platelet count. He underwent upper GI endoscopy yesterday which did not show any active bleeding. 4 acute abnormalities. Patient had been started on IV PPI and is currently on oral omeprazole. He has not had any further episodes of melena. He is feeling much better and wishes to go home. He Does continue to have low platelet count but is contemplating not receiving any further chemotherapy. He will follow up with oncology as outpatient for further management. He has an appointment later this week. He will be discharged with prescription to get his CBC checked prior to his visit. - Time Spent with Patient Total time spent providing and/or coordinating discharge services: Greater than 30 minutes (35 min) - Constitutional Vitals: Temp Pulse Resp BP Pulse Ox 98.1 F 98 16 119/74 94 04/05/17 06:29 04/05/17 06:29 04/05/17 06:29 04/05/17 06:29 04/05/17 06:29 General appearance: Present: cachectic, cooperative, A&O X 3, pleasant, no acute distress, underweight, answers questions appropriately - Neck Neck exam general surgery: Present: supple, trachea midline. Absent: lymphadenopathy - Respiratory Respiratory exam: Present: CTAB. Absent: accessory muscle use, rales, rhonchi, wheezes - Cardiovascular Cardiovascular exam: Present: RRR, +S1, +S2. Absent: diastolic murmur, gallop, rubs, systolic murmur - GI/Abdominal GI/Abdominal exam: Present: normal bowel sounds, soft, no peritoneal signs. Absent: distended, tenderness - Skin Skin exam: Present: dry, intact, pallor - VTE Documentation of Mechanical Device: Intermittent pneumatic compression device
--- NOTE | 2017-04-05 10:33 | Gastroenterology Consult Note ---
<Kemi Coy - Last Filed: 04/05/17 15:05> Date of Encounter: 04/05/17 Time of Encounter: 12:00 - Time Spent With Patient Total time spent is greater than 50% in coordination of care (as documented) at patient's floor/unit and/or counseling patient: GI History of Present Illness - Data of Consult Requesting Physician: Vishnu Szymanski MD - Consult Narrative History of present illness: Mr. Ortiz is a 62 year old male - Constitutional Vitals: Temp Pulse Resp BP Pulse Ox 98.1 F 98 16 119/74 94 04/05/17 06:29 04/05/17 06:29 04/05/17 06:29 04/05/17 06:29 04/05/17 06:29 Results - Labs CBC & Chem 7: 04/05/17 04:00 04/05/17 04:00 Labs: Last Result Calcium 7.6 mg/dL (8.6-10.8) L 04/05/17 04:00 Entire Visit Hgb 9.4 g/dL (12.9-16.9) L 04/05/17 04:00 Hct 27.9 % (37.5-50.1) L 04/05/17 04:00 PT 12.4 Seconds (9.4-12.1) H 04/03/17 13:30 Total Bilirubin 0.5 mg/dL (0.2-1.2) 04/03/17 13:30 AST 83 Units/L (5-34) H 04/03/17 13:30 ALT 59 Units/L (0-55) H 04/03/17 13:30 - ABG ABG results: PT/INR, D-dimer PT 12.4 Seconds (9.4-12.1) H 04/03/17 13:30 Consult Discharge Plan - Plan Instructions: Lung Cancer (DC), Anemia (GEN) Additional Instructions: Follow-up with oncology as scheduled Referrals: Evan Rizo MD [Primary Care Provider] - 04/09/17 1:15 pm (In one week) Natalie Sandhu MD [Partnered Physician] - 04/09/17 3:50 pm - Attending Attestation I examined this patient and my medical decision-making was reviewed with the Resident Physician. I agree with the documented findings, disposition and treatment plan as described except to the extent set forth below. <Jazmin Lee - Last Filed: 04/06/17 08:08> Date of Encounter: 04/06/17 Time of Encounter: 09:30 - Assessment and plan (1) Anemia Status: Acute Assessment and plan: Pt presented with profound anemia with a hgb of 3.8 has improved to 9.4 following transfusion. He is also thrombocytopenic. EGD did not show source of bleeding. Rectal exam was negative for jeffry blood. Anemia may be related to chemotherapy would monitor. Qualifiers: Anemia type: unspecified type Qualified Code(s): D64.9 - Anemia, unspecified (2) Constipation Status: Acute Assessment and plan: Pt denies chronic constipation but reports no BM for 3 days. Will order miralax and dulcolax suppository. May need continued on miralax at home. Qualifiers: Constipation type: unspecified constipation type Qualified Code(s): K59.00 - Constipation, unspecified (3) Small cell carcinoma of right lung Status: Acute Assessment and plan: Followed by oncology. Has been on chemotherapy but unable to finish last round. - Time Spent With Patient Total time spent is greater than 50% in coordination of care (as documented) at patient's floor/unit and/or counseling patient: 25 - 35 minutes GI History of Present Illness - Data of Consult Patient: new to practice Consult date: 04/05/17 Requesting Physician: Vishnu Szymanski MD - Consult Narrative Reason for consult: anemia History of present illness: Mr. Ortiz is a 62 year old male transferred here from [facility] with anemia and complaints of melena. He was noted to have a hemoglobin of 3.5 and a platelet count of 22,000 and was borderline hypotensive and borderline tachycardic. Labs also included an INR 1.1, sodium 133, total bilirubin 0.5, AST 83, a LT 59, albumin 2.0. He reported a 4-5 day history of melena, epigastric pain, and worsening appetite loss. He has small cell lung CA diagnosed in 11/11 and has been on chemotherapy but unable to complete last round. He has appetite loss, weight loss, and generalized weakness. He reports weight loss of 20 pounds in the past 5 months. He also reports no BM for the past 3 days. He denies dysphagia or GERD symptoms. Colonoscopy: EGD: 04/13 esophageal candiditis and small hiatal hernia no-bleeding NSAIDS: ASA: Anticoagulants: Past Med Surg Social Fam HX - Past Medical History Medical history: cancer (lung cancer), hyperlipidemia, hypertension Psychiatric history: anxiety - Past Surgical History Surgical History: other (Aport placement; tosillectomy) - Social History Smoking Status: Current every day smoker Smokeless Tobacco Status: No Alcohol use: none Drug use: none - Family History Mother Age: 85 Living Status: Hx Family Cancer: Yes (Breast cancer) Father Age: 60 Living Status: Hx Family Cardiac Disorders: Yes Review of Systems: GI: as per [place] GENERAL: denies fever, has some chills EYES: denies yellow discoloration ENT: denies pain with swallowing or difficulty swallowing CARDIO: denies chest pain, palpitations RESP: chronic Shortness of breath with exertion : denies change in color of urine NEURO: chronic weakness HEME: Denies any bruising MS: chronic joint pain, and back pain. DERM: denies rash or itching PSYCH: Denies history of anxiety or depression - Constitutional Vitals: Temp Pulse Resp BP Pulse Ox 98.1 F 98 16 119/74 94 04/05/17 06:29 04/05/17 06:29 04/05/17 06:29 04/05/17 06:29 04/05/17 06:29 Exam: CONSTITUTIONAL:~alert, no acute distress.~HEAD:~normocephalic, bitemporal wasting.~EYES:~no jaundice.~NECK:~no obvious swelling.~HEART:~regular rate and rhythm, no murmurs.~LUNGS:~fair air entry.~ABDOMEN:~non distended, firm, non tender, no masses pulpable, no organomegaly, bowel sounds active x 4 quadrants.~ RECTAL EXAM:~negative for jeffry blood.~EXTREMITIES:~cachectic, no clubbing, cyanosis or edema.~SKIN:~no stigmata of chronic liver disease.~NEUROLOGIC:~no obvious focal defect.~~~~ Results - Labs CBC & Chem 7: 04/05/17 04:00 04/05/17 04:00 Labs: Last Result Calcium 7.6 mg/dL (8.6-10.8) L 04/05/17 04:00 Entire Visit Hgb 9.4 g/dL (12.9-16.9) L 04/05/17 04:00 Hct 27.9 % (37.5-50.1) L 04/05/17 04:00 PT 12.4 Seconds (9.4-12.1) H 04/03/17 13:30 Total Bilirubin 0.5 mg/dL (0.2-1.2) 04/03/17 13:30 AST 83 Units/L (5-34) H 04/03/17 13:30 ALT 59 Units/L (0-55) H 04/03/17 13:30 - ABG ABG results: PT/INR, D-dimer PT 12.4 Seconds (9.4-12.1) H 04/03/17 13:30
[2017-04-05] MEDS ORDERED: Bisacodyl 10 MG RECTAL SUPPOSITORY RC ONE (10:50)
--- NOTE | 2017-04-05 18:33 | Electrocardiograph Report ---
[place] [id number] Test Date: 2017-04-02 Pat Name: Dusty Ortiz Department: 109 Room: 3A25 Gender: M [employer] Up Work[employer]: : 1955 Requested By: Nick Cheung Order Number: [id number] Reading MD: Lupillo Carter MD Measurements Intervals [place] Rate: 87 P: 68 CO: 136 QRS: 68 QRSD: 90 T: 56 QT: 358 QTc: 402 Interpretive Statements SINUS RHYTHM Electronically Signed On 04-05-2017 18:31:43 EDT by Lupillo Carter MD
== END 2017-04-05 12:45 | disposition home health service (06) | DRG 377 ==
LOC: SUATTDRO 16:51 → ICNU 16:51 → 3ANU 04-04 12:03
PROVIDERS: ADMIT Hospitalist; ATTEND Internal Medicine
PROC: ENDOERT (2017-04-04 12:00)